=== PATIENT | female | born 1950 | race African-American/Black ===

== ENCOUNTER 2018-11-15 02:35 | Inpatient (IN) | payer MEDICARE, OTHER ==
[~2018-11-15] VITALS: Ht 167.6 cm; Wt 90.7 kg
[~2018-11-15 02:35] MED LIST: ADVAIR 500-501 EACH INH; ALBUTEROL2.5 MG/3 M INH; AMLODIPINE BES2.5 MG ORAL; ASPIRIN81 MG ORAL; AVAPRO300 MG ORAL; CENTRUM SILVER1 EAC6 PO; DULERA 100 MCG/13 GM INH; EFFEXOR XR75 MG ORAL; FISH OIL 1,0001 EAC1 ORAL; LEVOTHYROXINE100 MCG ORAL; LOSARTAN POTASS50 MG ORAL; MUCINEX600 MG PO; PREDNISONE10 MG ORAL; PREDNISONE2.5 MG ORAL; PREDNISONE5 M3 PO; PROBIOTIC1 EAC2 PO; SSS TONIC PO; VENTOLIN HFA18 GM INH; XOPENEX0.63 MG/3 HHN
[2018-11-15] MEDS ORDERED: ATROVENT HFA12.9 GM IH (05:03)
[2018-11-15] MEDS ORDERED: HYDROcodone/Acetamin 5/325 tab ORAL PRN ×2 (07:45→10:45)
[2018-11-15 08:00] VITALS: BP 151/81
[2018-11-15 08:53] LABS: EOSINOPHILS % (AUTO) 3.5 % (0.0-3.0); HEMATOCRIT 44.5 % (37.0-47.0); HEMOGLOBIN 14.7 G/DL (12.0-16.0); LYMPHOCYTES % (AUTO) 8.3 % (20.0-45.0); MEAN CORPUSCULAR VOLUME 95 FL (80-99); NEUTROPHILS % (AUTO) 79.3 % (45.0-75.0); PLATELET COUNT 335 K/UL (150-450); RED CELL DISTRIBUTION WIDTH 12.7 % (11.6-14.8); WHITE BLOOD COUNT 11.3 K/UL (4.8-10.8)
[2018-11-15 09:13] LABS: ALANINE AMINOTRANSFERASE 19 U/L (12-78); ALBUMIN 3.4 G/DL (3.4-5.0); ALBUMIN/GLOBULIN RATIO 0.9 (1.0-2.7); ALKALINE PHOSPHATASE 66 U/L (46-116); ANION GAP 7 mmol/L (5-15); ASPARTATE AMINO TRANSFERASE 10 U/L (15-37); BILIRUBIN,TOTAL 0.8 MG/DL (0.2-1.0); BLOOD UREA NITROGEN 20 mg/dL (7-18); CALCIUM 8.7 MG/DL (8.5-10.1); CARBON DIOXIDE 29 MMOL/L (21-32); CHLORIDE 102 MMOL/L (98-107); CREATININE 0.9 MG/DL (0.55-1.30); PHOSPHORUS 4.5 MG/DL (2.5-4.9); POTASSIUM 4.3 MMOL/L (3.5-5.1); SODIUM 138 MMOL/L (136-145)
[2018-11-15] MEDS: Irbesartan 150mg tablet ORAL SCH (09:40)
[2018-11-15] MEDS: Venlafaxine XR 75mg cap ORAL SCH (09:41)
[2018-11-15] MEDS: Acyclovir 1,000 MG in D5W 275 ML IV SCH ×2 (09:42→17:06)
[2018-11-15] MEDS: Aspirin Baby 81mg ORAL SCH (09:42)
[2018-11-15 10:24] VITALS: BP 151/81
[2018-11-15] MEDS: Morphine Sulfate 2mg/ml Inj(IV/IM USE ONLY) IVP PRN ×2 (10:43→17:06)
[2018-11-15] MEDS ORDERED: Morphine Sulfate 2mg/ml Inj(IV/IM USE ONLY) IVP PRN (10:45)
--- NOTE | 2018-11-15 11:28 | Consultation ---
History of Present Illness General Date patient seen: Nov 15, 2018 Present Illness HPI 68 year old female with hx of HTN, asthma, hypothyroid [place] [facility] [place] and swelling of R eye. Pt was diagnosed to have ophthalmic zoster and transferred [place] [facility] [place]. Pt is currently c/o of severe right frontal headache. Allergies: Coded Allergies: FLUTICASONE FUROATE (Verified Allergy, Severe, Anaphylaxis, 11/11/18) VILANTEROL (Verified Allergy, Severe, Anaphylaxis, 11/11/18) [id number] REDUCTASE INHIBITOR (Verified Allergy, Mild, Shortness of Breath, 01/16/16) SULFA (SULFONAMIDE ANTIBIOTICS) (Verified Allergy, Mild, Shortness of Breath, 01/16/16) SULFAMETHOXAZOLE (Verified Allergy, Mild, Rash, 01/16/16) TRIMETHOPRIM (Verified Allergy, Mild, Rash, 01/16/16) Medication History Scheduled Amlodipine Besylate* (Amlodipine Besylate*), 5 MG ORAL DAILY, (Reported) Aspirin* (Aspirin*), 81 MG ORAL 2-3 TIMES PER WEEK, (Reported) Irbesartan* (Avapro*), 300 MG ORAL DAILY, (Reported) Levothyroxine Sodium* (Levothyroxine Sodium*), 100 MCG ORAL DAILY, (Reported) Venlafaxine Hcl* (Effexor Xr*), 75 MG ORAL DAILY, (Reported) [Sss Tonic], Unknown Dose PO DAILY, (Reported) Miscellaneous Medications Ipratropium [place] (Atrovent Hfa), 0 IH, (Reported) Discontinued Medications Albuterol Sulfate (Ventolin Hfa), 1 PUFF INH EVERY 6 HOURS PRN for Shortness of breath, (Reported) Discontinued Reason: MD discontinued med Albuterol Sulfate* (Albuterol Sulfate Hhn*), 3 ML INH Q6H PRN for Shortness of Breath, (Reported) Discontinued Reason: Pt stopped taking med Fluticasone/Salmeterol (Advair 500-50 Diskus), 1 PUFF INH EVERY 12 HOURS, ( Reported) Discontinued Reason: Pt stopped taking med Guaifenesin (Mucinex), 600 MG PO DAILY, (Reported) Discontinued Reason: MD discontinued med Lactobacillus Acidophilus (Probiotic), 1 EACH PO, (Reported) Discontinued Reason: MD discontinued med Levalbuterol Hcl (Xopenex*), 0.45 MG HHN prn, (Reported) Discontinued Reason: Pt stopped taking med Losartan Potassium* (Losartan Potassium*), 50 MG ORAL bid, (Reported) Discontinued Reason: MD discontinued med Multivits-Min/Iron/FA/Lutein (Centrum Silver Women Tablet), 1 EACH PO DAILY, ( Reported) Discontinued Reason: MD discontinued med [place]-3 Fatty Acids/Fish Oil* (Fish Oil 1,000 Mg Softgel*), 1 CAP ORAL DAILY, ( Reported) Discontinued Reason: MD discontinued med Prednisone (Prednisone), 25 MG PO DAILY, (Reported) Discontinued Reason: MD discontinued med Prednisone* (Prednisone*), 25 MG ORAL DAILY, (Reported) Discontinued Reason: Prescription changed Prednisone* (Prednisone*), 2.5 MG ORAL DAILY, (Reported) Discontinued Reason: MD discontinued med Patient History Healthcare decision maker Resuscitation status Full Code Advanced Directive on File Past Medical/Surgical History Past Medical/Surgical History: (1) History of asthma (2) Hypothyroidism (3) History of hypertension Review of Systems All Other Systems: negative except mentioned in HPI Physical Exam General Appearance: WD/WN Lines, tubes and drains: peripheral HEENT: normocephalic, other - swelling of right lids, leading to closure of the eye Neck: non-tender, normal alignment Respiratory/Chest: chest wall non-tender, lungs clear Last 24 Hour Vital Signs Date Time Temp Pulse Resp B/P (MAP) Pulse Ox O2 Delivery O2 Flow Rate FiO2 11/15/18 09:41 71 151/81 11/15/18 09:40 151/81 11/15/18 08:00 98.2 71 18 151/81 (104) 95 11/15/18 04:21 Room Air 11/15/18 04:00 62 Laboratory Tests Test 11/15/18 08:40 White Blood Count 11.3 K/UL (4.8-10.8) H Red Blood Count 4.70 M/UL (4.20-5.40) Hemoglobin 14.7 G/DL (12.0-16.0) Hematocrit 44.5 % (37.0-47.0) Mean Corpuscular Volume 95 FL (80-99) Mean Corpuscular Hemoglobin 31.3 PG (27.0-31.0) H Mean Corpuscular Hemoglobin Concent 33.0 G/DL (32.0-36.0) Red Cell Distribution Width 12.7 % (11.6-14.8) Platelet Count 335 K/UL (150-450) Mean Platelet Volume 5.3 FL (6.5-10.1) L Neutrophils (%) (Auto) 79.3 % (45.0-75.0) H Lymphocytes (%) (Auto) 8.3 % (20.0-45.0) L Monocytes (%) (Auto) 8.0 % (1.0-10.0) Eosinophils (%) (Auto) 3.5 % (0.0-3.0) H Basophils (%) (Auto) 1.0 % (0.0-2.0) Sodium Level 138 MMOL/L (136-145) Potassium Level 4.3 MMOL/L (3.5-5.1) Chloride Level 102 MMOL/L (98-107) Carbon Dioxide Level 29 MMOL/L (21-32) Anion Gap 7 mmol/L (5-15) Blood Urea Nitrogen 20 mg/dL (7-18) H Creatinine 0.9 MG/DL (0.55-1.30) Estimat Glomerular Filtration Rate > 60 mL/min (>60) Glucose Level 116 MG/DL (74-106) H Calcium Level 8.7 MG/DL (8.5-10.1) Phosphorus Level 4.5 MG/DL (2.5-4.9) Magnesium Level 2.3 MG/DL (1.8-2.4) Total Bilirubin 0.8 MG/DL (0.2-1.0) Aspartate Amino Transf (AST/SGOT) 10 U/L (15-37) L Alanine Aminotransferase (ALT/SGPT) 19 U/L (12-78) Alkaline Phosphatase 66 U/L (46-116) Total Protein 7.1 G/DL (6.4-8.2) Albumin 3.4 G/DL (3.4-5.0) Globulin 3.7 g/dL Albumin/Globulin Ratio 0.9 (1.0-2.7) L Height (Feet): 5 Height (Inches): 6.00 Weight (Pounds): 203 Medications Current Medications Medications (Trade) Dose Ordered Sig/Shayan Route PRN Reason Start Time Stop Time Status Last Admin Dose Admin Acetaminophen (Tylenol) 650 mg Q4H PRN ORAL Mild Pain/Temp > 100.5 11/15/18 07:45 12/15/18 07:44 Acetaminophen/ Hydrocodone Bitart ([place] 5/325) 1 tab Q6H PRN ORAL moderate pain 4-6 11/15/18 10:45 11/22/18 07:44 Acyclovir 1000 mg/ Dextrose 275 ml @ 275 mls/hr Q8HR@0100,0900,1700 IV 11/15/18 09:00 12/15/18 08:59 11/15/18 09:42 Amlodipine Besylate (Norvasc) 5 mg DAILY ORAL 11/15/18 09:00 12/15/18 08:59 11/15/18 09:41 Aspirin (ASA) 81 mg DAILY ORAL 11/15/18 09:00 12/15/18 08:59 11/15/18 09:42 Gabapentin (Neurontin) 100 mg THREE TIMES A DAY ORAL 11/15/18 09:00 12/15/18 08:59 11/15/18 09:41 Heparin Sodium (Porcine) (Heparin 5000 units/ml) 5,000 units EVERY 8 HOURS SUBQ 11/15/18 14:00 12/15/18 13:59 Irbesartan (Avapro) 300 mg DAILY ORAL 11/15/18 09:00 12/15/18 08:59 11/15/18 09:40 Levothyroxine Sodium (Synthroid) 100 mcg DAILY@0630 ORAL 11/16/18 06:30 12/16/18 06:29 Morphine Sulfate (Morphine Sulfate) 2 mg Q4H PRN IVP severe pain 7-10 11/15/18 10:45 11/22/18 10:44 11/15/18 10:43 Ondansetron HCl (Zofran) 4 mg Q4H PRN IVP Nausea & Vomiting 11/15/18 07:45 12/15/18 07:44 Venlafaxine HCl (Effexor-XR) 75 mg DAILY ORAL 11/15/18 09:00 12/15/18 08:59 11/15/18 09:41 Assessment/Plan Problem List: (1) Shingles ICD Codes: B02.9 - Zoster without complications SNOMED: 9737826 (2) History of hypertension ICD Codes: Z86.79 - Personal history of other diseases of the circulatory system SNOMED: 211897835 (3) History of asthma ICD Codes: Z87.09 - Personal history of other diseases of the respiratory system SNOMED: 873871916 (4) Hypothyroidism ICD Codes: E03.9 - Hypothyroidism, unspecified SNOMED: 15687205 Assessment/Plan: Acyclovir IV IV morphine monitor BP symptomatic treatment ID consult dvt prophylaxis Patricia Willis MD Nov 15, 2018 11:28
[2018-11-15 12:00] VITALS: BP 137/71
[2018-11-15] MEDS: Heparin 5000 units/ml inj SUBQ SCH ×2 (13:55→22:00)
--- NOTE | 2018-11-15 15:57 | Consultation ---
Consult Note Consult Note ID Cons. [id number] August Hamlin MD Nov 15, 2018 15:57
[2018-11-15 16:00] VITALS: BP 127/75
[2018-11-15] MEDS: Erythromycin Opth Ointment 3.5gm RIGHT EYE SCH (17:54)
--- NOTE | 2018-11-15 18:45 | History & Physical ---
History and Physical History & Physicial Dictated for Int Med-Dr Burger no. [id number]. Moshe Marcano MD Nov 15, 2018 18:45
[2018-11-15 20:00] VITALS: BP 129/90
[2018-11-15] MEDS ORDERED: Morphine Sulfate 4mg/ml Inj (IV USE ONLY) IVP PRN (21:00)
--- NOTE | 2018-11-15 23:45 | History and Physical Report ---
DATE OF ADMISSION: 11/15/2018 CHIEF COMPLAINT: The patient is a 68-year-old female, who presents with a chief complaint of rash on the right side of her face. HISTORY OF PRESENT ILLNESS: Began on 11/10/2018. The patient noticed redness on the right side of her face. The patient then began to experience swelling on 11/05/2018. The right eye became very painful. The eye became so painful on 11/06/2018. The patient called EMS. The patient was transported initially to [facility] emergency room. The patient is transferred to [facility] for insurance purposes. The patient is admitted with a vesicular rash over the right forehead and right eye consistent with Herpes zoster. REVIEW OF SYSTEMS: CONSTITUTIONAL: The patient denies weight loss or weight gain. The patient denies fevers or chills. HEENT: The patient denies ear or throat pain. The patient denies headache. CARDIOVASCULAR: The patient denies palpitations or chest pain. CHEST: The patient denies wheeze or shortness of breath. ABDOMINAL: The patient denies nausea, vomiting, diarrhea, or constipation. GENITOURINARY: The patient denies dysuria or increased frequency of urination. NEUROMUSCULAR: The patient denies seizures or generalized weakness. INTEGUMENT: The patient complains of vesicular crusty rash over the right forehead and right eye. PAST MEDICAL HISTORY: Significant for, 1. Hypothyroidism. 2. Hypertension. 3. Asthma. 4. Chronic obstructive pulmonary disease. 5. Depression. 6. Hypercholesterolemia. PAST SURGICAL HISTORY: Significant for total abdominal hysterectomy secondary to uterine fibroids. CURRENT MEDICATIONS: 1. Levoxyl 0.1 mg p.o. daily. 2. Albuterol metered-dose inhaler two puffs p.o. q.i.d. p.r.n. 3. Atrovent metered-dose inhaler two puffs p.o. q.i.d. 4. Prednisone 20 mg p.o. daily. 5. Advair 500/50 one puff p.o. twice daily. 6. Losartan 50 mg p.o. daily. 7. Amlodipine 5 mg p.o. daily. 8. Fish oil 1000 mg 2 tablets p.o. twice daily. 9. Venlafaxine 75 mg p.o. daily. ALLERGIES: 1. Statin. 2. Sulfa drugs. SOCIAL HISTORY: The patient is single and is disabled. The patient denies tobacco use having quit approximately 15 years ago. The patient denies alcohol use. PHYSICAL EXAMINATION: VITAL SIGNS: Temperature 98.2, respirations 18, pulse 71, and blood pressure 161/81. GENERAL: This patient is a well-developed and well-nourished female, in no apparent distress. HEENT: Eyes, pupils are equal and responsive to light and accommodation. Extraocular movements are intact. NECK: Supple without lymphadenopathy. CHEST: Lungs are clear to auscultation bilaterally without wheezes or rales. CARDIOVASCULAR: Regular rhythm and rate. S1 and S2 are normal without murmurs, rubs, or gallops. ABDOMEN: Soft, nontender, and nondistended. Positive bowel sounds. No evidence of hepatosplenomegaly. Currently, no rebound or guarding noted. EXTREMITIES: Negative for clubbing, cyanosis, or edema. RECTAL/GENITAL: Refused. NEUROLOGIC: Cranial nerves II through XII are grossly intact without focal deficits. Motor strength is 5/5 bilaterally. Deep tendon reflexes are 2+ plantar. INTEGUMENT: There is a vesicular rash over the entire right forehead including the nose and right eye. LABORATORY STUDIES: WBC 12.1, hemoglobin 15.1, hematocrit 45.0, and platelets 343,000. Sodium 135, potassium 3.8, chloride 101, CO2 25, BUN 17, creatinine 0.87, and glucose 126. ASSESSMENT: This is a 68-year-old female. 1. Ophthalmic Herpes zoster of the right eye. 2. Herpes zoster of the face. 3. Hypothyroidism. 4. Asthma. 5. Hypertension. 6. Chronic obstructive pulmonary disease. 7. Depression. 8. Hypercholesterolemia. TREATMENT: 1. Herpes zoster ophthalmicus of the right eye/herpes zoster of the face. An Infectious Disease consultation has been obtained with Dr. Hamlin. The patient has been started empirically on intravenous acyclovir. We will follow recommendations of Infectious Disease. An Ophthalmology consultation has been obtained. 2. Hypothyroidism. Continue Synthroid as above. 3. Hypertension. Continue amlodipine and losartan as above. 4. Asthma. Continue Advair as above. Continue albuterol metered-dose inhaler two puffs p.o. q.i.d. p.r.n. 5. Depression. Continue venlafaxine as above. 6. Hypercholesteremia. Continue fish oil as above. Moshe Marcano M.D. DR: TRACEE JOB#: [id number] CC:
[2018-11-16] VITALS: BP 141/67
--- NOTE | 2018-11-16 00:45 | Consultation ---
DATE OF CONSULTATION: 11/15/2018 INFECTIOUS DISEASE CONSULTATION CONSULTING PHYSICIAN: August Hamlin M.D. REFERRING PHYSICIANS: 1. Patricia Willis M.D. 2. Lev Burger M.D. REASON FOR CONSULTATION: Evaluation of the patient for shingles and antibiotic management. HISTORY OF PRESENT ILLNESS: The patient is a 68-year-old female with multiple medical problems, who was admitted to this medical center due to right facial pain and rash. The patient initially was admitted to another facility, was diagnosed with shingles and then was transferred here for further care. Infectious Disease consultation has been requested for further evaluation of the patient and antibiotic management. PAST MEDICAL HISTORY: 1. Hypertension. 2. Asthma. 3. Hypothyroidism. MEDICATIONS: IV acyclovir. ALLERGIES: Sulfa and fluticasone. FAMILY HISTORY: Not contributing. REVIEW OF SYSTEMS: A 10-point review of systems was done and except what was mentioned above has been negative. SOCIAL HISTORY: Negative for alcohol or drug abuse. PHYSICAL EXAMINATION: VITAL SIGNS: Temperature 98 degrees, blood pressure 137/74, pulse 86, and respiratory rate 18. HEENT: No pale conjunctivae. No icterus. Face, there is a rash over the right frontal, periorbital, and tip of the nose. The patient has edema of the right eyelid. The patient expressed that there is no change of vision compared to prior due to cataract. NECK: No lymphadenopathy. CHEST: Bilateral air entry. No crackles. No wheezes. HEART: S1 and S2. ABDOMEN: Soft and nontender. EXTREMITIES: No cyanosis. NEUROLOGIC: Awake. LABORATORY AND DIAGNOSTIC DATA: White blood cells 11, hemoglobin 14, and platelets 335,000. BUN 20 and creatinine 0.9. ALT, AST, and alkaline phosphatase unremarkable. ASSESSMENT: The patient is a 68-year-old female with, 1. Right facial Herpes zoster ophthalmicus (based on the patient's history, no history of visual changes). 2. Afebrile. 3. Mild leukocytosis. PLAN: 1. Continue the patient on intravenous acyclovir. 2. Continue the patient on topical antibiotic treatment to prevent bacterial conjunctivitis. 3. Recommend Ophthalmologic consultation. 4. Monitor CBC. 5. Monitor BMP. 6. Monitor laboratories. 7. Contact isolation (no need for as the patient is not immunocompromised and does not have definitive Zoster). Thank you for this consultation. I will follow the patient with you during this hospitalization. August Hamlin M.D. DR: DIANELYS JOB#: [id number] CC:
[2018-11-16] MEDS: Acyclovir 1,000 MG in D5W 275 ML IV SCH ×3 (01:18→17:27)
[2018-11-16 04:00] VITALS: BP 127/65
[2018-11-16] MEDS: Heparin 5000 units/ml inj SUBQ SCH ×3 (06:23→22:06)
[2018-11-16 07:16] LABS: EOSINOPHILS % (AUTO) 1.4 % (0.0-3.0); HEMATOCRIT 42.4 % (37.0-47.0); HEMOGLOBIN 14.3 G/DL (12.0-16.0); LYMPHOCYTES % (AUTO) 10.5 % (20.0-45.0); MEAN CORPUSCULAR VOLUME 95 FL (80-99); MONOCYTES % (AUTO) 8.1 % (1.0-10.0); PLATELET COUNT 331 K/UL (150-450); RED BLOOD COUNT 4.47 M/UL (4.20-5.40); RED CELL DISTRIBUTION WIDTH 12.5 % (11.6-14.8); WHITE BLOOD COUNT 9.9 K/UL (4.8-10.8)
[2018-11-16 07:21] LABS: ANION GAP 9 mmol/L (5-15); BLOOD UREA NITROGEN 14 mg/dL (7-18); CALCIUM 8.6 MG/DL (8.5-10.1); CARBON DIOXIDE 27 MMOL/L (21-32); CHLORIDE 99 MMOL/L (98-107); CREATININE 0.7 MG/DL (0.55-1.30); POTASSIUM 3.8 MMOL/L (3.5-5.1); SODIUM 135 MMOL/L (136-145)
[2018-11-16 08:00] VITALS: BP 133/69
[2018-11-16] MEDS: Aspirin Baby 81mg ORAL SCH (09:10)
[2018-11-16] MEDS: Venlafaxine XR 75mg cap ORAL SCH (09:10)
[2018-11-16] MEDS: Irbesartan 150mg tablet ORAL SCH (09:11)
[2018-11-16] MEDS: Erythromycin Opth Ointment 3.5gm RIGHT EYE SCH ×2 (09:11→17:26)
--- NOTE | 2018-11-16 09:59 | Pulmonology Progress Note ---
Assessment/Plan Problems: (1) Shingles (2) History of hypertension (3) History of asthma (4) Hypothyroidism Assessment/Plan on IV acyclovir monitor BP respiratory treatment check electrolytes Subjective ROS Limited/Unobtainable: No Interval Events: not better, scared Allergies: Coded Allergies: FLUTICASONE FUROATE (Verified Allergy, Severe, Anaphylaxis, 11/11/18) VILANTEROL (Verified Allergy, Severe, Anaphylaxis, 11/11/18) [id number] REDUCTASE INHIBITOR (Verified Allergy, Mild, Shortness of Breath, 01/16/16) SULFA (SULFONAMIDE ANTIBIOTICS) (Verified Allergy, Mild, Shortness of Breath, 01/16/16) SULFAMETHOXAZOLE (Verified Allergy, Mild, Rash, 01/16/16) TRIMETHOPRIM (Verified Allergy, Mild, Rash, 01/16/16) Objective Last 24 Hour Vital Signs Date Time Temp Pulse Resp B/P (MAP) Pulse Ox O2 Delivery O2 Flow Rate FiO2 11/16/18 09:11 133/69 11/16/18 09:10 59 133/69 11/16/18 08:00 59 11/16/18 08:00 98.1 61 20 133/69 (90) 91 11/16/18 04:00 98.2 63 20 127/65 (85) 91 11/16/18 04:00 63 11/16/18 00:00 70 11/16/18 00:00 98.2 70 20 141/67 (91) 98 11/15/18 21:00 Room Air 11/15/18 20:00 98.2 77 18 129/90 (103) 98 11/15/18 20:00 77 11/15/18 16:00 84 11/15/18 16:00 97.7 95 18 127/75 (92) 92 11/15/18 12:00 98.2 71 18 137/71 (93) 94 11/15/18 12:00 81 Intake and Output 11/15/18 11/16/18 18:59 06:59 Intake Total 720 ml 400 ml Balance 720 ml 400 ml Intake Oral 720 ml Other 400 ml # Voids 3 3 General Appearance: WD/WN HEENT: normocephalic, atraumatic, other - the right eye still not open Respiratory/Chest: chest wall non-tender, lungs clear Breasts: no masses Cardiovascular: normal peripheral pulses Abdomen: normal bowel sounds, soft, non tender Extremities: no cyanosis, no clubbing Neurologic/Psychiatric: case management social worker II-XII grossly normal Lymphatic: no neck adenopathy Laboratory Tests 11/16/18 06:35: White Blood Count 9.9, Red Blood Count 4.47, Hemoglobin 14.3, Hematocrit 42.4, Mean Corpuscular Volume 95, Mean Corpuscular Hemoglobin 31.9H, Mean Corpuscular Hemoglobin Concent 33.6, Red Cell Distribution Width 12.5, Platelet Count 331, Mean Platelet Volume 5.4L, Neutrophils (%) (Auto) 79.0H, Lymphocytes (%) (Auto) 10.5L, Monocytes (%) (Auto) 8.1, Eosinophils (%) (Auto) 1.4, Basophils (%) (Auto ) 1.0, Sodium Level 135L, Potassium Level 3.8, Chloride Level 99, Carbon Dioxide Level 27, Anion Gap 9, Blood Urea Nitrogen 14, Creatinine 0.7, Estimat Glomerular Filtration Rate > 60, Glucose Level 113H, Calcium Level 8.6 Current Medications Medications (Trade) Dose Ordered Sig/Shayan Route PRN Reason Start Time Stop Time Status Last Admin Dose Admin Acetaminophen (Tylenol) 650 mg Q4H PRN ORAL Mild Pain/Temp > 100.5 11/15/18 07:45 12/15/18 07:44 Acetaminophen/ Hydrocodone Bitart ([place] 5/325) 1 tab Q6H PRN ORAL moderate pain 4-11/15/18 10:45 11/22/18 07:44 11/16/18 01:17 Acyclovir 1000 mg/ Dextrose 275 ml @ 275 mls/hr Q8HR@0100,0900,1700 IV 11/15/18 09:00 12/15/18 08:59 11/16/18 09:12 Amlodipine Besylate (Norvasc) 5 mg DAILY ORAL 11/15/18 09:00 12/15/18 08:59 11/16/18 09:10 Aspirin (ASA) 81 mg DAILY ORAL 11/15/18 09:00 12/15/18 08:59 11/16/18 09:10 Erythromycin (Ilotycin) 1 applic BID RIGHT EYE 11/15/18 18:00 11/22/18 17:59 11/16/18 09:11 Gabapentin (Neurontin) 100 mg THREE TIMES A DAY ORAL 11/15/18 09:00 12/15/18 08:59 11/16/18 09:10 Heparin Sodium (Porcine) (Heparin 5000 units/ml) 5,000 units EVERY 8 HOURS SUBQ 11/15/18 14:00 12/15/18 13:59 11/16/18 06:23 Irbesartan (Avapro) 300 mg DAILY ORAL 11/15/18 09:00 12/15/18 08:59 11/16/18 09:11 Levothyroxine Sodium (Synthroid) 100 mcg DAILY@0630 ORAL 11/16/18 06:30 12/16/18 06:29 11/16/18 06:18 Morphine Sulfate (Morphine Sulfate) 2 mg Q4H PRN IVP severe pain 7-10 11/15/18 21:00 11/22/18 10:44 Ondansetron HCl (Zofran) 4 mg Q4H PRN IVP Nausea & Vomiting 11/15/18 07:45 12/15/18 07:44 Prednisone (predniSONE) 15 mg DAILY ORAL 11/15/18 18:00 12/15/18 17:59 11/16/18 09:10 Venlafaxine HCl (Effexor-XR) 75 mg DAILY ORAL 11/15/18 09:00 12/15/18 08:59 11/16/18 09:10 Patricia Willis MD Nov 16, 2018 09:59
[2018-11-16] MEDS ORDERED: Albuterol/Ipratropium 3ml neb HHN PRN (10:00)
[2018-11-16] MEDS ORDERED: Ipratropium 0.02% Inh Soln 2.5ml UD HHN PRN (10:45)
[2018-11-16 12:00] VITALS: BP 136/73
[2018-11-16 16:00] VITALS: BP 139/67
--- NOTE | 2018-11-16 17:32 | Infectious Diseases Prog Note ---
Assessment/Plan Assessment/Plan ASSESSMENT: The patient is a 68-year-old female with, Right facial Herpes zoster ophthalmicus (no history of visual changes). Afebrile. Mild leukocytosis Hypertension. Asthma. Hypothyroidism. PLAN: Continue the patient on intravenous acyclovir d# 2. Continue the patient on topical Erythromycin Recommend Ophthalmologic consultation. Monitor CBC. Monitor BMP. Contact isolation Subjective Allergies: Coded Allergies: FLUTICASONE FUROATE (Verified Allergy, Severe, Anaphylaxis, 11/11/18) VILANTEROL (Verified Allergy, Severe, Anaphylaxis, 11/11/18) [id number] REDUCTASE INHIBITOR (Verified Allergy, Mild, Shortness of Breath, 01/16/16) SULFA (SULFONAMIDE ANTIBIOTICS) (Verified Allergy, Mild, Shortness of Breath, 01/16/16) SULFAMETHOXAZOLE (Verified Allergy, Mild, Rash, 01/16/16) TRIMETHOPRIM (Verified Allergy, Mild, Rash, 01/16/16) Subjective comfortable Objective Vital Signs Last 24 Hour Vital Signs Date Time Temp Pulse Resp B/P (MAP) Pulse Ox O2 Delivery O2 Flow Rate FiO2 11/16/18 16:00 98.2 75 20 139/67 (91) 95 11/16/18 12:00 98.4 68 20 136/73 (94) 93 11/16/18 12:00 72 11/16/18 09:11 133/69 11/16/18 09:10 59 133/69 11/16/18 09:00 Room Air 11/16/18 08:00 59 11/16/18 08:00 98.1 61 20 133/69 (90) 91 11/16/18 04:00 98.2 63 20 127/65 (85) 91 11/16/18 04:00 63 11/16/18 00:00 70 11/16/18 00:00 98.2 70 20 141/67 (91) 98 11/15/18 21:00 Room Air 11/15/18 20:00 98.2 77 18 129/90 (103) 98 11/15/18 20:00 77 Height (Feet): 5 Height (Inches): 6.00 Weight (Pounds): 203 HEENT: mucous membranes moist Respiratory/Chest: normal breath sounds Cardiovascular: regular rhythm Abdomen: soft, non tender Laboratory Tests Test 11/16/18 06:35 White Blood Count 9.9 K/UL (4.8-10.8) Red Blood Count 4.47 M/UL (4.20-5.40) Hemoglobin 14.3 G/DL (12.0-16.0) Hematocrit 42.4 % (37.0-47.0) Mean Corpuscular Volume 95 FL (80-99) Mean Corpuscular Hemoglobin 31.9 PG (27.0-31.0) H Mean Corpuscular Hemoglobin Concent 33.6 G/DL (32.0-36.0) Red Cell Distribution Width 12.5 % (11.6-14.8) Platelet Count 331 K/UL (150-450) Mean Platelet Volume 5.4 FL (6.5-10.1) L Neutrophils (%) (Auto) 79.0 % (45.0-75.0) H Lymphocytes (%) (Auto) 10.5 % (20.0-45.0) L Monocytes (%) (Auto) 8.1 % (1.0-10.0) Eosinophils (%) (Auto) 1.4 % (0.0-3.0) Basophils (%) (Auto) 1.0 % (0.0-2.0) Sodium Level 135 MMOL/L (136-145) L Potassium Level 3.8 MMOL/L (3.5-5.1) Chloride Level 99 MMOL/L (98-107) Carbon Dioxide Level 27 MMOL/L (21-32) Anion Gap 9 mmol/L (5-15) Blood Urea Nitrogen 14 mg/dL (7-18) Creatinine 0.7 MG/DL (0.55-1.30) Estimat Glomerular Filtration Rate > 60 mL/min (>60) Glucose Level 113 MG/DL (74-106) H Calcium Level 8.6 MG/DL (8.5-10.1) Current Medications Medications (Trade) Dose Ordered Sig/Shayan Route PRN Reason Start Time Stop Time Status Last Admin Dose Admin Acetaminophen (Tylenol) 650 mg Q4H PRN ORAL Mild Pain/Temp > 100.5 11/15/18 07:45 12/15/18 07:44 Acetaminophen/ Hydrocodone Bitart ([place] 5/325) 1 tab Q6H PRN ORAL moderate pain 4-6 11/15/18 10:45 11/22/18 07:44 4/30/19 01:17 Acyclovir 1000 mg/ Dextrose 275 ml @ 275 mls/hr Q8HR@0100,0900,1700 IV 11/15/18 09:00 12/15/18 08:59 11/16/18 17:27 Amlodipine Besylate (Norvasc) 5 mg DAILY ORAL 11/15/18 09:00 12/15/18 08:59 11/16/18 09:10 Aspirin (ASA) 81 mg DAILY ORAL 11/15/18 09:00 12/15/18 08:59 11/16/18 09:10 Erythromycin (Ilotycin) 1 applic BID RIGHT EYE 11/15/18 18:00 11/22/18 17:59 11/16/18 17:26 Gabapentin (Neurontin) 100 mg THREE TIMES A DAY ORAL 11/15/18 09:00 12/15/18 08:59 11/16/18 17:26 Heparin Sodium (Porcine) (Heparin 5000 units/ml) 5,000 units EVERY 8 HOURS SUBQ 11/15/18 14:00 12/15/18 13:59 11/16/18 13:10 Ipratropium [place] (Atrovent) 500 mcg Q6H PRN HHN Shortness of Breath 11/16/18 10:45 11/21/18 10:44 Irbesartan (Avapro) 300 mg DAILY ORAL 11/15/18 09:00 12/15/18 08:59 11/16/18 09:11 Levothyroxine Sodium (Synthroid) 100 mcg DAILY@0630 ORAL 11/16/18 06:30 12/16/18 06:29 11/16/18 06:18 Morphine Sulfate (Morphine Sulfate) 2 mg Q4H PRN IVP severe pain 7-10 11/15/18 21:00 11/22/18 10:44 Ondansetron HCl (Zofran) 4 mg Q4H PRN IVP Nausea & Vomiting 11/15/18 07:45 12/15/18 07:44 Prednisone (predniSONE) 15 mg DAILY ORAL 11/15/18 18:00 12/15/18 17:59 11/16/18 09:10 Sodium Chloride 1,000 ml @ 75 mls/hr [id number] IV 11/16/18 11:00 12/16/18 10:59 11/16/18 13:05 Venlafaxine HCl (Effexor-XR) 75 mg DAILY ORAL 11/15/18 09:00 12/15/18 08:59 11/16/18 09:10 August Hamlin MD Nov 16, 2018 17:32
--- NOTE | 2018-11-16 19:21 | Internal Med Progress Note ---
Subjective Date of Service: Nov 16, 2018 Physician Name Moshe Marcano Attending Physician Lev Burger MD Current Medications Medications (Trade) Dose Ordered Sig/Shayan Route PRN Reason Start Time Stop Time Status Last Admin Dose Admin Acetaminophen (Tylenol) 650 mg Q4H PRN ORAL Mild Pain/Temp > 100.5 11/15/18 07:45 12/15/18 07:44 Acetaminophen/ Hydrocodone Bitart ([place] 5/325) 1 tab Q6H PRN ORAL moderate pain 4-6 11/15/18 10:45 11/22/18 07:44 11/16/18 01:17 Acyclovir 1000 mg/ Dextrose 275 ml @ 275 mls/hr Q8HR@0100,0900,1700 IV 11/15/18 09:00 12/15/18 08:59 11/16/18 17:27 Amlodipine Besylate (Norvasc) 5 mg DAILY ORAL 11/15/18 09:00 12/15/18 08:59 11/16/18 09:10 Aspirin (ASA) 81 mg DAILY ORAL 11/15/18 09:00 12/15/18 08:59 11/16/18 09:10 Erythromycin (Ilotycin) 1 applic BID RIGHT EYE 11/15/18 18:00 11/22/18 17:59 11/16/18 17:26 Gabapentin (Neurontin) 100 mg THREE TIMES A DAY ORAL 11/15/18 09:00 12/15/18 08:59 11/16/18 17:26 Heparin Sodium (Porcine) (Heparin 5000 units/ml) 5,000 units EVERY 8 HOURS SUBQ 11/15/18 14:00 12/15/18 13:59 11/16/18 13:10 Ipratropium [place] (Atrovent) 500 mcg Q6H PRN HHN Shortness of Breath 11/16/18 10:45 11/21/18 10:44 Irbesartan (Avapro) 300 mg DAILY ORAL 11/15/18 09:00 12/15/18 08:59 11/16/18 09:11 Levothyroxine Sodium (Synthroid) 100 mcg DAILY@0630 ORAL 11/16/18 06:30 12/16/18 06:29 11/16/18 06:18 Morphine Sulfate (Morphine Sulfate) 2 mg Q4H PRN IVP severe pain 7-10 11/15/18 21:00 11/22/18 10:44 Ondansetron HCl (Zofran) 4 mg Q4H PRN IVP Nausea & Vomiting 11/15/18 07:45 12/15/18 07:44 Prednisone (predniSONE) 15 mg DAILY ORAL 11/15/18 18:00 12/15/18 17:59 11/16/18 09:10 Sodium Chloride 1,000 ml @ 75 mls/hr [id number] IV 11/16/18 11:00 12/16/18 10:59 11/16/18 13:05 Venlafaxine HCl (Effexor-XR) 75 mg DAILY ORAL 11/15/18 09:00 12/15/18 08:59 11/16/18 09:10 Allergies: Coded Allergies: FLUTICASONE FUROATE (Verified Allergy, Severe, Anaphylaxis, 11/11/18) VILANTEROL (Verified Allergy, Severe, Anaphylaxis, 11/11/18) [id number] REDUCTASE INHIBITOR (Verified Allergy, Mild, Shortness of Breath, 01/16/16) SULFA (SULFONAMIDE ANTIBIOTICS) (Verified Allergy, Mild, Shortness of Breath, 01/16/16) SULFAMETHOXAZOLE (Verified Allergy, Mild, Rash, 01/16/16) TRIMETHOPRIM (Verified Allergy, Mild, Rash, 01/16/16) ROS Limited/Unobtainable: No Constitutional: Reports: no symptoms HEENT: Reports: no symptoms Cardiovascular: Reports: no symptoms Respiratory: Reports: no symptoms Gastrointestinal/Abdominal: Reports: no symptoms Genitourinary: Reports: no symptoms Neurologic/Psychiatric: Reports: no symptoms Subjective 68 YO F admitted with rash on right face. Now herpes zoster ophthalmicus and herpes zoster face. Cover for Int Joel-Dr Burger Objective Last Vital Signs Date Time Temp Pulse Resp B/P (MAP) Pulse Ox O2 Delivery O2 Flow Rate FiO2 11/16/18 16:00 98.2 75 20 139/67 (91) 95 11/16/18 09:00 Room Air Laboratory Tests Test 11/16/18 06:35 White Blood Count 9.9 K/UL (4.8-10.8) Red Blood Count 4.47 M/UL (4.20-5.40) Hemoglobin 14.3 G/DL (12.0-16.0) Hematocrit 42.4 % (37.0-47.0) Mean Corpuscular Volume 95 FL (80-99) Mean Corpuscular Hemoglobin 31.9 PG (27.0-31.0) H Mean Corpuscular Hemoglobin Concent 33.6 G/DL (32.0-36.0) Red Cell Distribution Width 12.5 % (11.6-14.8) Platelet Count 331 K/UL (150-450) Mean Platelet Volume 5.4 FL (6.5-10.1) L Neutrophils (%) (Auto) 79.0 % (45.0-75.0) H Lymphocytes (%) (Auto) 10.5 % (20.0-45.0) L Monocytes (%) (Auto) 8.1 % (1.0-10.0) Eosinophils (%) (Auto) 1.4 % (0.0-3.0) Basophils (%) (Auto) 1.0 % (0.0-2.0) Sodium Level 135 MMOL/L (136-145) L Potassium Level 3.8 MMOL/L (3.5-5.1) Chloride Level 99 MMOL/L (98-107) Carbon Dioxide Level 27 MMOL/L (21-32) Anion Gap 9 mmol/L (5-15) Blood Urea Nitrogen 14 mg/dL (7-18) Creatinine 0.7 MG/DL (0.55-1.30) Estimat Glomerular Filtration Rate > 60 mL/min (>60) Glucose Level 113 MG/DL (74-106) H Calcium Level 8.6 MG/DL (8.5-10.1) Intake and Output 11/15/18 11/16/18 19:00 07:00 Intake Total 720 ml 400 ml Balance 720 ml 400 ml Intake Oral 720 ml Other 400 ml # Voids 3 3 Objective PHYSICAL EXAMINATION: GENERAL: This patient is a well-developed and well-nourished female, in no apparent distress. HEENT: Eyes, pupils are equal and responsive to light and accommodation. Extraocular movements are intact. NECK: Supple without lymphadenopathy. CHEST: Lungs are clear to auscultation bilaterally without wheezes or rales. CARDIOVASCULAR: Regular rhythm and rate. S1 and S2 are normal without murmurs, rubs, or gallops. ABDOMEN: Soft, nontender, and nondistended. Positive bowel sounds. No evidence of hepatosplenomegaly. Currently, no rebound or guarding noted. EXTREMITIES: Negative for clubbing, cyanosis, or edema. RECTAL/GENITAL: Refused. NEUROLOGIC: Cranial nerves II through XII are grossly intact without focal deficits. Motor strength is 5/5 bilaterally. Deep tendon reflexes are 2+ plantar. INTEGUMENT: There is a vesicular rash over the entire right forehead including the nose and right eye. Assessment/Plan Assessment/Plan ASSESSMENT: This is a 68-year-old female. 1. Ophthalmic Herpes zoster of the right eye. 2. Herpes zoster of the face. 3. Hypothyroidism. 4. Asthma. 5. Hypertension. 6. Chronic obstructive pulmonary disease. 7. Depression. 8. Hypercholesterolemia. TREATMENT: 1. Herpes zoster ophthalmicus of the right eye/herpes zoster of the face. An Infectious Disease consultation has been obtained with Dr. Hamlin. The patient has been started empirically on intravenous acyclovir. We will follow recommendations of Infectious Disease. An Ophthalmology consultation has been obtained. 2. Hypothyroidism. Continue Synthroid as above. 3. Hypertension. Continue amlodipine and losartan as above. 4. Asthma. Continue Advair as above. Continue albuterol metered-dose inhaler two puffs p.o. q.i.d. p.r.n. 5. Depression. Continue venlafaxine as above. 6. Hypercholesteremia. Continue fish oil as above. Moshe Marcano MD Nov 16, 2018 19:21
[2018-11-16 20:00] VITALS: BP 114/64
[2018-11-17] VITALS: BP 184/85
[2018-11-17] MEDS: Acyclovir 1,000 MG in D5W 275 ML IV SCH ×3 (01:15→18:09)
[2018-11-17 04:00] VITALS: BP 139/82
[2018-11-17] MEDS: Heparin 5000 units/ml inj SUBQ SCH ×3 (06:23→21:42)
[2018-11-17 08:00] VITALS: BP 125/84
[2018-11-17] MEDS: Erythromycin Opth Ointment 3.5gm RIGHT EYE SCH ×3 (09:00→18:09)
[2018-11-17] MEDS: Venlafaxine XR 75mg cap ORAL SCH (09:22)
[2018-11-17] MEDS: Irbesartan 150mg tablet ORAL SCH (09:23)
[2018-11-17] MEDS: Aspirin Baby 81mg ORAL SCH (09:23)
--- NOTE | 2018-11-17 11:34 | Pulmonology Progress Note ---
Assessment/Plan Problems: (1) Shingles (2) History of hypertension (3) History of asthma (4) Hypothyroidism Assessment/Plan getting better all reviewed on IV acyclovir monitor BP respiratory treatment check electrolytes dvt prophylaxis. Subjective ROS Limited/Unobtainable: No Interval Events: eye lid opening more Constitutional: Reports: no symptoms HEENT: Repors: no symptoms Allergies: Coded Allergies: FLUTICASONE FUROATE (Verified Allergy, Severe, Anaphylaxis, 11/11/18) VILANTEROL (Verified Allergy, Severe, Anaphylaxis, 11/11/18) [id number] REDUCTASE INHIBITOR (Verified Allergy, Mild, Shortness of Breath, 01/16/16) SULFA (SULFONAMIDE ANTIBIOTICS) (Verified Allergy, Mild, Shortness of Breath, 01/16/16) SULFAMETHOXAZOLE (Verified Allergy, Mild, Rash, 01/16/16) TRIMETHOPRIM (Verified Allergy, Mild, Rash, 01/16/16) Objective Last 24 Hour Vital Signs Date Time Temp Pulse Resp B/P (MAP) Pulse Ox O2 Delivery O2 Flow Rate FiO2 11/17/18 09:23 125/84 11/17/18 09:22 74 125/84 11/17/18 09:00 Room Air 11/17/18 08:23 74 20 Room Air 21 11/17/18 08:00 98.4 74 20 125/84 (98) 94 11/17/18 04:00 () 11/17/18 00:00 99.3 78 20 184/85 (118) 97 11/16/18 21:00 Room Air 11/16/18 20:00 69 11/16/18 20:00 99.0 78 18 114/64 (81) 95 11/16/18 16:00 98.2 75 20 139/67 (91) 95 11/16/18 16:00 65 11/16/18 12:00 98.4 68 20 136/73 (94) 93 11/16/18 12:00 72 Intake and Output 11/16/18 11/17/18 18:59 06:59 Intake Total 720 ml Balance 720 ml Intake Oral 720 ml # Voids 6 3 General Appearance: WD/WN HEENT: normocephalic, atraumatic Respiratory/Chest: chest wall non-tender, lungs clear Cardiovascular: normal peripheral pulses, regular rhythm Abdomen: normal bowel sounds, soft, non tender Genitourinary: normal external genitalia Extremities: no clubbing Current Medications Medications (Trade) Dose Ordered Sig/Shayan Route PRN Reason Start Time Stop Time Status Last Admin Dose Admin Acetaminophen (Tylenol) 650 mg Q4H PRN ORAL Mild Pain/Temp > 100.5 11/15/18 07:45 12/15/18 07:44 Acetaminophen/ Hydrocodone Bitart ([place] 5/325) 1 tab Q6H PRN ORAL moderate pain 4-6 11/15/18 10:45 11/22/18 07:44 11/16/18 01:17 Acyclovir 1000 mg/ Dextrose 275 ml @ 275 mls/hr Q8HR@0100,0900,1700 IV 11/15/18 09:00 12/15/18 08:59 11/17/18 10:01 Amlodipine Besylate (Norvasc) 5 mg DAILY ORAL 11/15/18 09:00 12/15/18 08:59 11/17/18 09:22 Aspirin (ASA) 81 mg DAILY ORAL 11/15/18 09:00 12/15/18 08:59 11/17/18 09:23 Erythromycin (Ilotycin) 1 applic BID RIGHT EYE 11/15/18 18:00 11/22/18 17:59 11/17/18 10:39 Gabapentin (Neurontin) 100 mg THREE TIMES A DAY ORAL 11/15/18 09:00 12/15/18 08:59 11/17/18 09:22 Heparin Sodium (Porcine) (Heparin 5000 units/ml) 5,000 units EVERY 8 HOURS SUBQ 11/15/18 14:00 12/15/18 13:59 11/17/18 06:23 Ipratropium [place] (Atrovent) 500 mcg Q6H PRN HHN Shortness of Breath 11/16/18 10:45 11/21/18 10:44 Irbesartan (Avapro) 300 mg DAILY ORAL 11/15/18 09:00 12/15/18 08:59 11/17/18 09:23 Levothyroxine Sodium (Synthroid) 100 mcg DAILY@0630 ORAL 11/16/18 06:30 12/16/18 06:29 11/17/18 06:20 Morphine Sulfate (Morphine Sulfate) 2 mg Q4H PRN IVP severe pain 7-10 11/15/18 21:00 11/22/18 10:44 Ondansetron HCl (Zofran) 4 mg Q4H PRN IVP Nausea & Vomiting 11/15/18 07:45 12/15/18 07:44 Prednisone (predniSONE) 15 mg DAILY ORAL 11/15/18 18:00 12/15/18 17:59 11/17/18 09:22 Sodium Chloride 1,000 ml @ 75 mls/hr [id number] IV 11/16/18 11:00 12/16/18 10:59 11/17/18 00:19 Venlafaxine HCl (Effexor-XR) 75 mg DAILY ORAL 11/15/18 09:00 12/15/18 08:59 11/17/18 09:22 Patricia Willis MD November 17, 2018 11:34
--- NOTE | 2018-11-17 11:54 | Internal Med Progress Note ---
Subjective Date of Service: November 17, 2018 Physician Name Moshe Marcano Attending Physician Lev Burger MD Current Medications Medications (Trade) Dose Ordered Sig/Shayan Route PRN Reason Start Time Stop Time Status Last Admin Dose Admin Acetaminophen (Tylenol) 650 mg Q4H PRN ORAL Mild Pain/Temp > 100.5 11/15/18 07:45 12/15/18 07:44 Acetaminophen/ Hydrocodone Bitart ([place] 5/325) 1 tab Q6H PRN ORAL moderate pain 4-6 11/15/18 10:45 11/22/18 07:44 11/16/18 01:17 Acyclovir 1000 mg/ Dextrose 275 ml @ 275 mls/hr Q8HR@0100,0900,1700 IV 11/15/18 09:00 12/15/18 08:59 11/17/18 10:01 Amlodipine Besylate (Norvasc) 5 mg DAILY ORAL 11/15/18 09:00 12/15/18 08:59 11/17/18 09:22 Aspirin (ASA) 81 mg DAILY ORAL 11/15/18 09:00 12/15/18 08:59 11/17/18 09:23 Erythromycin (Ilotycin) 1 applic BID RIGHT EYE 11/15/18 18:00 11/22/18 17:59 11/17/18 10:39 Gabapentin (Neurontin) 100 mg THREE TIMES A DAY ORAL 11/15/18 09:00 12/15/18 08:59 11/17/18 09:22 Heparin Sodium (Porcine) (Heparin 5000 units/ml) 5,000 units EVERY 8 HOURS SUBQ 11/15/18 14:00 12/15/18 13:59 11/17/18 06:23 Ipratropium [place] (Atrovent) 500 mcg Q6H PRN HHN Shortness of Breath 11/16/18 10:45 11/21/18 10:44 Irbesartan (Avapro) 300 mg DAILY ORAL 11/15/18 09:00 12/15/18 08:59 11/17/18 09:23 Levothyroxine Sodium (Synthroid) 100 mcg DAILY@0630 ORAL 11/16/18 06:30 12/16/18 06:29 11/17/18 06:20 Morphine Sulfate (Morphine Sulfate) 2 mg Q4H PRN IVP severe pain 7-10 11/15/18 21:00 11/22/18 10:44 Ondansetron HCl (Zofran) 4 mg Q4H PRN IVP Nausea & Vomiting 11/15/18 07:45 12/15/18 07:44 Prednisone (predniSONE) 15 mg DAILY ORAL 11/15/18 18:00 12/15/18 17:59 11/17/18 09:22 Sodium Chloride 1,000 ml @ 75 mls/hr [id number] IV 11/16/18 11:00 12/16/18 10:59 11/17/18 00:19 Venlafaxine HCl (Effexor-XR) 75 mg DAILY ORAL 11/15/18 09:00 12/15/18 08:59 11/17/18 09:22 Allergies: Coded Allergies: FLUTICASONE FUROATE (Verified Allergy, Severe, Anaphylaxis, 11/11/18) VILANTEROL (Verified Allergy, Severe, Anaphylaxis, 11/11/18) [id number] REDUCTASE INHIBITOR (Verified Allergy, Mild, Shortness of Breath, 01/16/16) SULFA (SULFONAMIDE ANTIBIOTICS) (Verified Allergy, Mild, Shortness of Breath, 01/16/16) SULFAMETHOXAZOLE (Verified Allergy, Mild, Rash, 01/16/16) TRIMETHOPRIM (Verified Allergy, Mild, Rash, 01/16/16) ROS Limited/Unobtainable: No Constitutional: Reports: no symptoms HEENT: Reports: no symptoms Cardiovascular: Reports: no symptoms Respiratory: Reports: no symptoms Gastrointestinal/Abdominal: Reports: no symptoms Genitourinary: Reports: no symptoms Neurologic/Psychiatric: Reports: no symptoms Subjective 68 YO F admitted with rash on right face. Now herpes zoster ophthalmicus and herpes zoster face. Cover for Int Joel-Dr Burger Objective Last Vital Signs Date Time Temp Pulse Resp B/P (MAP) Pulse Ox O2 Delivery O2 Flow Rate FiO2 11/17/18 09:23 125/84 11/17/18 09:22 74 11/17/18 09:00 Room Air 11/17/18 08:23 20 21 11/17/18 08:00 98.4 94 Intake and Output 11/16/18 11/17/18 18:59 06:59 Intake Total 720 ml Balance 720 ml Intake Oral 720 ml # Voids 6 3 Objective PHYSICAL EXAMINATION: GENERAL: This patient is a well-developed and well-nourished female, in no apparent distress. HEENT: Eyes, pupils are equal and responsive to light and accommodation. Extraocular movements are intact. NECK: Supple without lymphadenopathy. CHEST: Lungs are clear to auscultation bilaterally without wheezes or rales. CARDIOVASCULAR: Regular rhythm and rate. S1 and S2 are normal without murmurs, rubs, or gallops. ABDOMEN: Soft, nontender, and nondistended. Positive bowel sounds. No evidence of hepatosplenomegaly. Currently, no rebound or guarding noted. EXTREMITIES: Negative for clubbing, cyanosis, or edema. RECTAL/GENITAL: Refused. NEUROLOGIC: Cranial nerves II through XII are grossly intact without focal deficits. Motor strength is 5/5 bilaterally. Deep tendon reflexes are 2+ plantar. INTEGUMENT: There is a vesicular rash over the entire right forehead including the nose and right eye. Assessment/Plan Assessment/Plan ASSESSMENT: This is a 68-year-old female. 1. Ophthalmic Herpes zoster of the right eye. 2. Herpes zoster of the face. 3. Hypothyroidism. 4. Asthma. 5. Hypertension. 6. Chronic obstructive pulmonary disease. 7. Depression. 8. Hypercholesterolemia. TREATMENT: 1. Herpes zoster ophthalmicus of the right eye/herpes zoster of the face. An Infectious Disease consultation has been obtained with Dr. Hamlin. The patient has been started empirically on intravenous acyclovir. We will follow recommendations of Infectious Disease. An Ophthalmology consultation has been obtained. 2. Hypothyroidism. Continue Synthroid as above. 3. Hypertension. Continue amlodipine and losartan as above. 4. Asthma. Continue Advair as above. Continue albuterol metered-dose inhaler two puffs p.o. q.i.d. p.r.n. 5. Depression. Continue venlafaxine as above. 6. Hypercholesteremia. Continue fish oil as above. Moshe Marcano MD November 17, 2018 11:54
[2018-11-17 12:00] VITALS: BP 130/70
[2018-11-17 16:00] VITALS: BP 156/70
--- NOTE | 2018-11-17 19:00 | Infectious Diseases Prog Note ---
Assessment/Plan Assessment/Plan ASSESSMENT: The patient is a 68-year-old female with, Right facial Herpes zoster ophthalmicus (no history of visual changes). Afebrile. Mild leukocytosis Hypertension. Asthma. Hypothyroidism. PLAN: Continue the patient on intravenous acyclovir d# 3 / Continue the patient on topical Erythromycin Recommend Ophthalmologic consultation. Monitor CBC. Monitor BMP. Contact isolation Subjective Allergies: Coded Allergies: FLUTICASONE FUROATE (Verified Allergy, Severe, Anaphylaxis, 11/11/18) VILANTEROL (Verified Allergy, Severe, Anaphylaxis, 11/11/18) [id number] REDUCTASE INHIBITOR (Verified Allergy, Mild, Shortness of Breath, 01/16/16) SULFA (SULFONAMIDE ANTIBIOTICS) (Verified Allergy, Mild, Shortness of Breath, 01/16/16) SULFAMETHOXAZOLE (Verified Allergy, Mild, Rash, 01/16/16) TRIMETHOPRIM (Verified Allergy, Mild, Rash, 01/16/16) Subjective comfortable Objective Vital Signs Last 24 Hour Vital Signs Date Time Temp Pulse Resp B/P (MAP) Pulse Ox O2 Delivery O2 Flow Rate FiO2 11/17/18 16:00 97.5 79 20 156/70 (98) 95 11/17/18 12:00 97.2 97 20 130/70 (90) 97 11/17/18 09:23 125/84 11/17/18 09:22 74 125/84 11/17/18 09:00 Room Air 11/17/18 08:23 74 20 Room Air 21 11/17/18 08:00 98.4 74 20 125/84 (98) 94 11/17/18 04:00 () 11/17/18 00:00 99.3 78 20 184/85 (118) 97 11/16/18 21:00 Room Air 11/16/18 20:00 69 11/16/18 20:00 99.0 78 18 114/64 (81) 95 Height (Feet): 5 Height (Inches): 6.00 Weight (Pounds): 200 HEENT: atraumatic Respiratory/Chest: no respiratory distress Cardiovascular: regular rhythm Abdomen: soft, non tender Current Medications Medications (Trade) Dose Ordered Sig/Shayan Route PRN Reason Start Time Stop Time Status Last Admin Dose Admin Acetaminophen (Tylenol) 650 mg Q4H PRN ORAL Mild Pain/Temp > 100.5 11/15/18 07:45 12/15/18 07:44 Acetaminophen/ Hydrocodone Bitart ([place] 5/325) 1 tab Q6H PRN ORAL moderate pain 4-6 11/15/18 10:45 11/22/18 07:44 11/16/18 01:17 Acyclovir 1000 mg/ Dextrose 275 ml @ 275 mls/hr Q8HR@0100,0900,1700 IV 11/15/18 09:00 12/15/18 08:59 11/17/18 18:09 Amlodipine Besylate (Norvasc) 5 mg DAILY ORAL 11/15/18 09:00 12/15/18 08:59 11/17/18 09:22 Aspirin (ASA) 81 mg DAILY ORAL 11/15/18 09:00 12/15/18 08:59 11/17/18 09:23 Erythromycin (Ilotycin) 1 applic BID RIGHT EYE 11/15/18 18:00 11/22/18 17:59 11/17/18 18:09 Gabapentin (Neurontin) 100 mg THREE TIMES A DAY ORAL 11/15/18 09:00 12/15/18 08:59 11/17/18 18:09 Heparin Sodium (Porcine) (Heparin 5000 units/ml) 5,000 units EVERY 8 HOURS SUBQ 11/15/18 14:00 12/15/18 13:59 11/17/18 06:23 Ipratropium [place] (Atrovent) 500 mcg Q6H PRN HHN Shortness of Breath 11/16/18 10:45 11/21/18 10:44 Irbesartan (Avapro) 300 mg DAILY ORAL 11/15/18 09:00 12/15/18 08:59 11/17/18 09:23 Levothyroxine Sodium (Synthroid) 100 mcg DAILY@0630 ORAL 11/16/18 06:30 12/16/18 06:29 11/17/18 06:20 Morphine Sulfate (Morphine Sulfate) 2 mg Q4H PRN IVP severe pain 7-10 11/15/18 21:00 11/22/18 10:44 Ondansetron HCl (Zofran) 4 mg Q4H PRN IVP Nausea & Vomiting 11/15/18 07:45 12/15/18 07:44 Prednisone (predniSONE) 15 mg DAILY ORAL 11/15/18 18:00 12/15/18 17:59 11/17/18 09:22 Sodium Chloride 1,000 ml @ 75 mls/hr [id number] IV 11/16/18 11:00 12/16/18 10:59 11/17/18 00:19 Venlafaxine HCl (Effexor-XR) 75 mg DAILY ORAL 11/15/18 09:00 12/15/18 08:59 11/17/18 09:22 August Hamlin MD November 17, 2018 19:00
[2018-11-17 20:00] VITALS: BP 138/61
[2018-11-18] VITALS: BP 134/74
[2018-11-18] MEDS: Acyclovir 1,000 MG in D5W 275 ML IV SCH ×3 (00:03→17:14)
[2018-11-18 04:00] VITALS: BP 142/79
[2018-11-18] MEDS: Heparin 5000 units/ml inj SUBQ SCH ×3 (05:42→22:26)
[2018-11-18 07:03] LABS: BASOPHILS % (AUTO) 1.5 % (0.0-2.0); EOSINOPHILS % (AUTO) 5.1 % (0.0-3.0); HEMATOCRIT 40.5 % (37.0-47.0); HEMOGLOBIN 13.4 G/DL (12.0-16.0); LYMPHOCYTES % (AUTO) 22.4 % (20.0-45.0); MEAN CORPUSCULAR VOLUME 95 FL (80-99); MONOCYTES % (AUTO) 11.1 % (1.0-10.0); NEUTROPHILS % (AUTO) 59.9 % (45.0-75.0); PLATELET COUNT 304 K/UL (150-450); RED BLOOD COUNT 4.27 M/UL (4.20-5.40); RED CELL DISTRIBUTION WIDTH 12.4 % (11.6-14.8); WHITE BLOOD COUNT 8.4 K/UL (4.8-10.8)
[2018-11-18 08:00] VITALS: BP 126/66
[2018-11-18 08:30] LABS: ALANINE AMINOTRANSFERASE 23 U/L (12-78); ALBUMIN/GLOBULIN RATIO 0.8 (1.0-2.7); ALKALINE PHOSPHATASE 59 U/L (46-116); ANION GAP 11 mmol/L (5-15); ASPARTATE AMINO TRANSFERASE 18 U/L (15-37); BILIRUBIN,TOTAL 0.4 MG/DL (0.2-1.0); BLOOD UREA NITROGEN 13 mg/dL (7-18); CALCIUM 8.7 MG/DL (8.5-10.1); CARBON DIOXIDE 26 MMOL/L (21-32); CHLORIDE 102 MMOL/L (98-107); CREATININE 0.8 MG/DL (0.55-1.30); PHOSPHORUS 4.6 MG/DL (2.5-4.9); POTASSIUM 3.5 MMOL/L (3.5-5.1); SODIUM 139 MMOL/L (136-145)
[2018-11-18] MEDS: Irbesartan 150mg tablet ORAL SCH (09:00)
[2018-11-18] MEDS: Aspirin Baby 81mg ORAL SCH ×2 (09:00→09:03)
[2018-11-18] MEDS: Venlafaxine XR 75mg cap ORAL SCH (09:03)
[2018-11-18] MEDS: Erythromycin Opth Ointment 3.5gm RIGHT EYE SCH ×2 (09:04→17:53)
[2018-11-18] MEDS ORDERED: Ipratropium 0.02% Inh Soln 2.5ml UD HHN PRN (10:45)
[2018-11-18] MEDS ORDERED: HYDROcodone/Acetamin 5/325 tab ORAL PRN (10:45)
[2018-11-18] MEDS ORDERED: Morphine Sulfate 2mg/ml Inj(IV/IM USE ONLY) IVP PRN (11:00)
[2018-11-18 12:00] VITALS: BP 130/72
--- NOTE | 2018-11-18 12:52 | Pulmonology Progress Note ---
Assessment/Plan Problems: (1) Shingles (2) History of hypertension (3) History of asthma (4) Hypothyroidism Assessment/Plan all reviewed getting better all reviewed on IV acyclovir monitor BP respiratory treatment check electrolytes dvt prophylaxis. Subjective ROS Limited/Unobtainable: No Constitutional: Reports: no symptoms HEENT: Repors: no symptoms Respiratory: Reports: no symptoms Allergies: Coded Allergies: FLUTICASONE FUROATE (Verified Allergy, Severe, Anaphylaxis, 11/11/18) VILANTEROL (Verified Allergy, Severe, Anaphylaxis, 11/11/18) [id number] REDUCTASE INHIBITOR (Verified Allergy, Mild, Shortness of Breath, 01/16/16) SULFA (SULFONAMIDE ANTIBIOTICS) (Verified Allergy, Mild, Shortness of Breath, 01/16/16) SULFAMETHOXAZOLE (Verified Allergy, Mild, Rash, 01/16/16) TRIMETHOPRIM (Verified Allergy, Mild, Rash, 01/16/16) Objective Last 24 Hour Vital Signs Date Time Temp Pulse Resp B/P (MAP) Pulse Ox O2 Delivery O2 Flow Rate FiO2 11/18/18 09:03 89 126/66 11/18/18 09:00 126/66 11/18/18 09:00 Room Air 11/18/18 08:00 99.0 89 16 126/66 (86) 91 11/18/18 07:25 86 18 Room Air 21 11/18/18 04:00 98.1 75 18 142/79 (100) 96 11/18/18 00:00 98.4 82 18 134/74 (94) 94 11/17/18 21:00 Room Air 11/17/18 20:08 78 20 Room Air 21 11/17/18 20:00 98.2 80 18 138/61 (86) 95 11/17/18 16:00 97.5 79 20 156/70 (98) 95 Intake and Output 11/17/18 11/18/18 19:00 07:00 Intake Total 775 ml 2345 ml Output Total 1200 ml 700 ml Balance -425 ml 1645 ml Intake Oral 700 ml 700 ml IV Total 75 ml 1245 ml Other 400 ml Output Urine Total 1200 ml 700 ml # Voids 3 General Appearance: WD/WN HEENT: normocephalic, atraumatic Respiratory/Chest: chest wall non-tender, lungs clear Breasts: no masses Cardiovascular: normal peripheral pulses Abdomen: normal bowel sounds, soft, non tender Genitourinary: normal external genitalia Skin: no rash Laboratory Tests 11/18/18 06:20: White Blood Count 8.4, Red Blood Count 4.27, Hemoglobin 13.4, Hematocrit 40.5, Mean Corpuscular Volume 95, Mean Corpuscular Hemoglobin 31.4H, Mean Corpuscular Hemoglobin Concent 33.1, Red Cell Distribution Width 12.4, Platelet Count 304, Mean Platelet Volume 5.5L, Neutrophils (%) (Auto) 59.9, Lymphocytes (%) (Auto) 22.4, Monocytes (%) (Auto) 11.1H, Eosinophils (%) (Auto) 5.1H, Basophils (%) ( Auto) 1.5, Erythrocyte Sedimentation Rate 25, Sodium Level 139, Potassium Level 3.5, Chloride Level 102, Carbon Dioxide Level 26, Anion Gap 11, Blood Urea Nitrogen 13, Creatinine 0.8, Estimat Glomerular Filtration Rate > 60, Glucose Level 99, Calcium Level 8.7, Phosphorus Level 4.6, Magnesium Level 2.1, Total Bilirubin 0.4, Aspartate Amino Transf (AST/SGOT) 18, Alanine Aminotransferase ( ALT/SGPT) 23, Alkaline Phosphatase 59, C-Reactive Protein, Quantitative 1.9H, Total Protein 6.6, Albumin 3.0L, Globulin 3.6, Albumin/Globulin Ratio 0.8L Current Medications Medications (Trade) Dose Ordered Sig/Shayan Route PRN Reason Start Time Stop Time Status Last Admin Dose Admin Acetaminophen (Tylenol) 650 mg Q4H PRN ORAL Mild Pain/Temp > 100.5 11/18/18 11:00 12/15/18 10:59 Acetaminophen/ Hydrocodone Bitart ([place] 5/325) 1 tab Q6H PRN ORAL moderate pain 4-6 11/18/18 10:45 11/22/18 07:44 Acyclovir 1000 mg/ Dextrose 275 ml @ 275 mls/hr Q8HR@0100,0900,1700 IV 11/18/18 17:00 12/15/18 08:59 Amlodipine Besylate (Norvasc) 5 mg DAILY ORAL 11/19/18 09:00 12/15/18 08:59 Aspirin (ASA) 81 mg DAILY ORAL 11/19/18 09:00 12/15/18 08:59 Erythromycin (Ilotycin) 1 applic BID RIGHT EYE 11/18/18 18:00 11/22/18 17:59 Gabapentin (Neurontin) 100 mg THREE TIMES A DAY ORAL 11/18/18 13:00 12/15/18 08:59 Heparin Sodium (Porcine) (Heparin 5000 units/ml) 5,000 units EVERY 8 HOURS SUBQ 11/18/18 14:00 12/15/18 13:59 Ipratropium [place] (Atrovent) 500 mcg Q6H PRN HHN Shortness of Breath 11/18/18 10:45 11/21/18 10:44 Irbesartan (Avapro) 300 mg DAILY ORAL 11/19/18 09:00 12/15/18 08:59 Levothyroxine Sodium (Synthroid) 100 mcg DAILY@0630 ORAL 11/19/18 06:30 12/16/18 06:29 Morphine Sulfate (Morphine Sulfate) 2 mg Q4H PRN IVP severe pain 7-10 11/18/18 11:00 11/22/18 10:59 Ondansetron HCl (Zofran) 4 mg Q4H PRN IVP Nausea & Vomiting 11/18/18 11:00 12/15/18 10:59 Prednisone (predniSONE) 15 mg DAILY ORAL 11/19/18 09:00 12/15/18 17:59 Sodium Chloride 1,000 ml @ 75 mls/hr [id number] IV 11/18/18 10:15 12/16/18 10:59 Venlafaxine HCl (Effexor-XR) 75 mg DAILY ORAL 11/19/18 09:00 12/15/18 08:59 Patricia Willis MD November 18, 2018 12:52
--- NOTE | 2018-11-18 13:37 | Infectious Diseases Prog Note ---
Assessment/Plan Assessment/Plan ASSESSMENT: The patient is a 68-year-old female with, Right facial Herpes zoster ophthalmicus (no history of visual changes), crusting Afebrile. Mild leukocytosis, Sp Hypertension. Asthma. Hypothyroidism. PLAN: Continue the patient on intravenous acyclovir d# 4/, upon DC will change to Valtrex to complete the course Continue the patient on topical Erythromycin Recommend Ophthalmologic consultation. Monitor CBC. Monitor BMP. Contact isolation Subjective Allergies: Coded Allergies: FLUTICASONE FUROATE (Verified Allergy, Severe, Anaphylaxis, 11/11/18) VILANTEROL (Verified Allergy, Severe, Anaphylaxis, 11/11/18) [id number]-[id number]-ACY REDUCTASE INHIBITOR (Verified Allergy, Mild, Shortness of Breath, 01/16/16) SULFA (SULFONAMIDE ANTIBIOTICS) (Verified Allergy, Mild, Shortness of Breath, 01/16/16) SULFAMETHOXAZOLE (Verified Allergy, Mild, Rash, 01/16/16) TRIMETHOPRIM (Verified Allergy, Mild, Rash, 01/16/16) Subjective Afebrile Objective Vital Signs Last 24 Hour Vital Signs Date Time Temp Pulse Resp B/P (MAP) Pulse Ox O2 Delivery O2 Flow Rate FiO2 11/18/18 09:03 89 126/66 11/18/18 09:00 126/66 11/18/18 09:00 Room Air 11/18/18 08:00 99.0 89 16 126/66 (86) 91 11/18/18 07:25 86 18 Room Air 21 11/18/18 04:00 98.1 75 18 142/79 (100) 96 11/18/18 00:00 98.4 82 18 134/74 (94) 94 11/17/18 21:00 Room Air 11/17/18 20:08 78 20 Room Air 21 11/17/18 20:00 98.2 80 18 138/61 (86) 95 11/17/18 16:00 97.5 79 20 156/70 (98) 95 Height (Feet): 5 Height (Inches): 6.00 Weight (Pounds): 200 HEENT: anicteric Respiratory/Chest: normal breath sounds Cardiovascular: regularly irregular Abdomen: no organomegaly Laboratory Tests Test 11/18/18 06:20 White Blood Count 8.4 K/UL (4.8-10.8) Red Blood Count 4.27 M/UL (4.20-5.40) Hemoglobin 13.4 G/DL (12.0-16.0) Hematocrit 40.5 % (37.0-47.0) Mean Corpuscular Volume 95 FL (80-99) Mean Corpuscular Hemoglobin 31.4 PG (27.0-31.0) H Mean Corpuscular Hemoglobin Concent 33.1 G/DL (32.0-36.0) Red Cell Distribution Width 12.4 % (11.6-14.8) Platelet Count 304 K/UL (150-450) Mean Platelet Volume 5.5 FL (6.5-10.1) L Neutrophils (%) (Auto) 59.9 % (45.0-75.0) Lymphocytes (%) (Auto) 22.4 % (20.0-45.0) Monocytes (%) (Auto) 11.1 % (1.0-10.0) H Eosinophils (%) (Auto) 5.1 % (0.0-3.0) H Basophils (%) (Auto) 1.5 % (0.0-2.0) Erythrocyte Sedimentation Rate 25 MM/HR (0-30) Sodium Level 139 MMOL/L (136-145) Potassium Level 3.5 MMOL/L (3.5-5.1) Chloride Level 102 MMOL/L (98-107) Carbon Dioxide Level 26 MMOL/L (21-32) Anion Gap 11 mmol/L (5-15) Blood Urea Nitrogen 13 mg/dL (7-18) Creatinine 0.8 MG/DL (0.55-1.30) Estimat Glomerular Filtration Rate > 60 mL/min (>60) Glucose Level 99 MG/DL (74-106) Calcium Level 8.7 MG/DL (8.5-10.1) Phosphorus Level 4.6 MG/DL (2.5-4.9) Magnesium Level 2.1 MG/DL (1.8-2.4) Total Bilirubin 0.4 MG/DL (0.2-1.0) Aspartate Amino Transf (AST/SGOT) 18 U/L (15-37) Alanine Aminotransferase (ALT/SGPT) 23 U/L (12-78) Alkaline Phosphatase 59 U/L (46-116) C-Reactive Protein, Quantitative 1.9 mg/dL (0.00-0.90) H Total Protein 6.6 G/DL (6.4-8.2) Albumin 3.0 G/DL (3.4-5.0) L Globulin 3.6 g/dL Albumin/Globulin Ratio 0.8 (1.0-2.7) L Current Medications Medications (Trade) Dose Ordered Sig/Shayan Route PRN Reason Start Time Stop Time Status Last Admin Dose Admin Acetaminophen (Tylenol) 650 mg Q4H PRN ORAL Mild Pain/Temp > 100.5 11/18/18 11:00 12/15/18 10:59 Acetaminophen/ Hydrocodone Bitart ([place] 5/325) 1 tab Q6H PRN ORAL moderate pain 4-6 11/18/18 10:45 11/22/18 07:44 Acyclovir 1000 mg/ Dextrose 275 ml @ 275 mls/hr Q8HR@0100,0900,1700 IV 11/18/18 17:00 12/15/18 08:59 Amlodipine Besylate (Norvasc) 5 mg DAILY ORAL 11/19/18 09:00 12/15/18 08:59 Aspirin (ASA) 81 mg DAILY ORAL 11/19/18 09:00 12/15/18 08:59 Erythromycin (Ilotycin) 1 applic BID RIGHT EYE 11/18/18 18:00 11/22/18 17:59 Gabapentin (Neurontin) 100 mg THREE TIMES A DAY ORAL 11/18/18 13:00 12/15/18 08:59 11/18/18 13:24 Heparin Sodium (Porcine) (Heparin 5000 units/ml) 5,000 units EVERY 8 HOURS SUBQ 11/18/18 14:00 12/15/18 13:59 11/18/18 13:29 Ipratropium [place] (Atrovent) 500 mcg Q6H PRN HHN Shortness of Breath 11/18/18 10:45 11/21/18 10:44 Irbesartan (Avapro) 300 mg DAILY ORAL 11/19/18 09:00 12/15/18 08:59 Levothyroxine Sodium (Synthroid) 100 mcg DAILY@0630 ORAL 11/19/18 06:30 12/16/18 06:29 Morphine Sulfate (Morphine Sulfate) 2 mg Q4H PRN IVP severe pain 7-10 11/18/18 11:00 11/22/18 10:59 Ondansetron HCl (Zofran) 4 mg Q4H PRN IVP Nausea & Vomiting 11/18/18 11:00 12/15/18 10:59 Prednisone (predniSONE) 15 mg DAILY ORAL 11/19/18 09:00 12/15/18 17:59 Sodium Chloride 1,000 ml @ 75 mls/hr [id number] IV 11/18/18 10:15 12/16/18 10:59 Venlafaxine HCl (Effexor-XR) 75 mg DAILY ORAL 11/19/18 09:00 12/15/18 08:59 August Hamlin MD November 18, 2018 13:37
[2018-11-18 16:00] VITALS: BP 144/72
--- NOTE | 2018-11-18 18:08 | Internal Med Progress Note ---
Subjective Date of Service: November 18, 2018 Physician Name Moshe Marcano Attending Physician Lev Burger MD Current Medications Medications (Trade) Dose Ordered Sig/Shayan Route PRN Reason Start Time Stop Time Status Last Admin Dose Admin Acetaminophen (Tylenol) 650 mg Q4H PRN ORAL Mild Pain/Temp > 100.5 11/18/18 11:00 12/15/18 10:59 Acetaminophen/ Hydrocodone Bitart ([place] 5/325) 1 tab Q6H PRN ORAL moderate pain 4-6 11/18/18 10:45 11/22/18 07:44 Acyclovir 1000 mg/ Dextrose 275 ml @ 275 mls/hr Q8HR@0100,0900,1700 IV 11/18/18 17:00 12/15/18 08:59 11/18/18 17:14 Amlodipine Besylate (Norvasc) 5 mg DAILY ORAL 11/19/18 09:00 12/15/18 08:59 Aspirin (ASA) 81 mg DAILY ORAL 11/19/18 09:00 12/15/18 08:59 Erythromycin (Ilotycin) 1 applic BID RIGHT EYE 11/18/18 18:00 11/22/18 17:59 11/18/18 17:53 Gabapentin (Neurontin) 100 mg THREE TIMES A DAY ORAL 11/18/18 13:00 12/15/18 08:59 11/18/18 17:14 Heparin Sodium (Porcine) (Heparin 5000 units/ml) 5,000 units EVERY 8 HOURS SUBQ 11/18/18 14:00 12/15/18 13:59 11/18/18 13:29 Ipratropium [place] (Atrovent) 500 mcg Q6H PRN HHN Shortness of Breath 11/18/18 10:45 11/21/18 10:44 Irbesartan (Avapro) 300 mg DAILY ORAL 11/19/18 09:00 12/15/18 08:59 Levothyroxine Sodium (Synthroid) 100 mcg DAILY@0630 ORAL 11/19/18 06:30 12/16/18 06:29 Morphine Sulfate (Morphine Sulfate) 2 mg Q4H PRN IVP severe pain 7-10 11/18/18 11:00 11/22/18 10:59 Ondansetron HCl (Zofran) 4 mg Q4H PRN IVP Nausea & Vomiting 11/18/18 11:00 12/15/18 10:59 Prednisone (predniSONE) 15 mg DAILY ORAL 11/19/18 09:00 12/15/18 17:59 Sodium Chloride 1,000 ml @ 75 mls/hr [id number] IV 11/18/18 10:15 12/16/18 10:59 Venlafaxine HCl (Effexor-XR) 75 mg DAILY ORAL 11/19/18 09:00 12/15/18 08:59 Allergies: Coded Allergies: FLUTICASONE FUROATE (Verified Allergy, Severe, Anaphylaxis, 11/11/18) VILANTEROL (Verified Allergy, Severe, Anaphylaxis, 11/11/18) [id number] REDUCTASE INHIBITOR (Verified Allergy, Mild, Shortness of Breath, 01/16/16) SULFA (SULFONAMIDE ANTIBIOTICS) (Verified Allergy, Mild, Shortness of Breath, 01/16/16) SULFAMETHOXAZOLE (Verified Allergy, Mild, Rash, 01/16/16) TRIMETHOPRIM (Verified Allergy, Mild, Rash, 01/16/16) ROS Limited/Unobtainable: No Constitutional: Reports: no symptoms HEENT: Reports: no symptoms Cardiovascular: Reports: no symptoms Respiratory: Reports: no symptoms Gastrointestinal/Abdominal: Reports: no symptoms Genitourinary: Reports: no symptoms Neurologic/Psychiatric: Reports: no symptoms Subjective 68 YO F admitted with rash on right face. Now herpes zoster ophthalmicus and herpes zoster face. Cover for Int Joel-Dr Burger Objective Last Vital Signs Date Time Temp Pulse Resp B/P (MAP) Pulse Ox O2 Delivery O2 Flow Rate FiO2 11/18/18 16:00 97.3 86 18 144/72 (96) 93 11/18/18 15:40 Room Air 11/18/18 07:25 21 Laboratory Tests Test 11/18/18 06:20 White Blood Count 8.4 K/UL (4.8-10.8) Red Blood Count 4.27 M/UL (4.20-5.40) Hemoglobin 13.4 G/DL (12.0-16.0) Hematocrit 40.5 % (37.0-47.0) Mean Corpuscular Volume 95 FL (80-99) Mean Corpuscular Hemoglobin 31.4 PG (27.0-31.0) H Mean Corpuscular Hemoglobin Concent 33.1 G/DL (32.0-36.0) Red Cell Distribution Width 12.4 % (11.6-14.8) Platelet Count 304 K/UL (150-450) Mean Platelet Volume 5.5 FL (6.5-10.1) L Neutrophils (%) (Auto) 59.9 % (45.0-75.0) Lymphocytes (%) (Auto) 22.4 % (20.0-45.0) Monocytes (%) (Auto) 11.1 % (1.0-10.0) H Eosinophils (%) (Auto) 5.1 % (0.0-3.0) H Basophils (%) (Auto) 1.5 % (0.0-2.0) Erythrocyte Sedimentation Rate 25 MM/HR (0-30) Sodium Level 139 MMOL/L (136-145) Potassium Level 3.5 MMOL/L (3.5-5.1) Chloride Level 102 MMOL/L (98-107) Carbon Dioxide Level 26 MMOL/L (21-32) Anion Gap 11 mmol/L (5-15) Blood Urea Nitrogen 13 mg/dL (7-18) Creatinine 0.8 MG/DL (0.55-1.30) Estimat Glomerular Filtration Rate > 60 mL/min (>60) Glucose Level 99 MG/DL (74-106) Calcium Level 8.7 MG/DL (8.5-10.1) Phosphorus Level 4.6 MG/DL (2.5-4.9) Magnesium Level 2.1 MG/DL (1.8-2.4) Total Bilirubin 0.4 MG/DL (0.2-1.0) Aspartate Amino Transf (AST/SGOT) 18 U/L (15-37) Alanine Aminotransferase (ALT/SGPT) 23 U/L (12-78) Alkaline Phosphatase 59 U/L (46-116) C-Reactive Protein, Quantitative 1.9 mg/dL (0.00-0.90) H Total Protein 6.6 G/DL (6.4-8.2) Albumin 3.0 G/DL (3.4-5.0) L Globulin 3.6 g/dL Albumin/Globulin Ratio 0.8 (1.0-2.7) L Intake and Output 11/17/18 11/18/18 18:59 06:59 Intake Total 700 ml 2345 ml Output Total 1200 ml 700 ml Balance -500 ml 1645 ml Intake Oral 700 ml 700 ml IV Total 1245 ml Other 400 ml Output Urine Total 1200 ml 700 ml # Voids 3 Objective PHYSICAL EXAMINATION: GENERAL: This patient is a well-developed and well-nourished female, in no apparent distress. HEENT: Eyes, pupils are equal and responsive to light and accommodation. Extraocular movements are intact. NECK: Supple without lymphadenopathy. CHEST: Lungs are clear to auscultation bilaterally without wheezes or rales. CARDIOVASCULAR: Regular rhythm and rate. S1 and S2 are normal without murmurs, rubs, or gallops. ABDOMEN: Soft, nontender, and nondistended. Positive bowel sounds. No evidence of hepatosplenomegaly. Currently, no rebound or guarding noted. EXTREMITIES: Negative for clubbing, cyanosis, or edema. RECTAL/GENITAL: Refused. NEUROLOGIC: Cranial nerves II through XII are grossly intact without focal deficits. Motor strength is 5/5 bilaterally. Deep tendon reflexes are 2+ plantar. INTEGUMENT: There is a vesicular rash over the entire right forehead including the nose and right eye. Assessment/Plan Assessment/Plan ASSESSMENT: This is a 68-year-old female. 1. Ophthalmic Herpes zoster of the right eye. 2. Herpes zoster of the face. 3. Hypothyroidism. 4. Asthma. 5. Hypertension. 6. Chronic obstructive pulmonary disease. 7. Depression. 8. Hypercholesterolemia. TREATMENT: 1. Herpes zoster ophthalmicus of the right eye/herpes zoster of the face. An Infectious Disease consultation has been obtained with Dr. Hamlin. The patient has been started empirically on intravenous acyclovir. We will follow recommendations of Infectious Disease. An Ophthalmology consultation has been obtained. 2. Hypothyroidism. Continue Synthroid as above. 3. Hypertension. Continue amlodipine and losartan as above. 4. Asthma. Continue Advair as above. Continue albuterol metered-dose inhaler two puffs p.o. q.i.d. p.r.n. 5. Depression. Continue venlafaxine as above. 6. Hypercholesteremia. Continue fish oil as above. Moshe Marcano MD November 18, 2018 18:08
[2018-11-18 20:00] VITALS: BP 133/69
[2018-11-19] VITALS: BP 128/77
[2018-11-19] MEDS: Acyclovir 1,000 MG in D5W 275 ML IV SCH ×2 (00:45→08:29)
[2018-11-19 04:00] VITALS: BP 127/68
[2018-11-19] MEDS: Heparin 5000 units/ml inj SUBQ SCH ×2 (06:40→13:25)
[2018-11-19 08:00] VITALS: BP 125/86
[2018-11-19] MEDS: Erythromycin Opth Ointment 3.5gm RIGHT EYE SCH (08:31)
[2018-11-19] MEDS ORDERED: Irbesartan 150mg tablet ORAL SCH (09:00)
[2018-11-19] MEDS ORDERED: Venlafaxine XR 75mg cap ORAL SCH (09:00)
[2018-11-19] MEDS ORDERED: Aspirin Baby 81mg ORAL SCH (09:00)
[2018-11-19 12:00] VITALS: BP 139/86
--- NOTE | 2018-11-19 12:01 | Infectious Diseases Prog Note ---
Assessment/Plan Assessment/Plan ASSESSMENT: The patient is a 68-year-old female with, Right facial Herpes zoster ophthalmicus (no history of visual changes), crusting Afebrile. Mild leukocytosis, Sp Hypertension. Asthma. Hypothyroidism. PLAN: Continue the patient on intravenous acyclovir d# 5/10, upon DC will change to Valtrex to complete the course ( Rx in chart) Continue the patient on topical Erythromycin Recommend Ophthalmologic consultation. Monitor CBC. Monitor BMP. Contact isolation Subjective Allergies: Coded Allergies: FLUTICASONE FUROATE (Verified Allergy, Severe, Anaphylaxis, 11/11/18) VILANTEROL (Verified Allergy, Severe, Anaphylaxis, 11/11/18) [id number] REDUCTASE INHIBITOR (Verified Allergy, Mild, Shortness of Breath, 01/16/16) SULFA (SULFONAMIDE ANTIBIOTICS) (Verified Allergy, Mild, Shortness of Breath, 01/16/16) SULFAMETHOXAZOLE (Verified Allergy, Mild, Rash, 01/16/16) TRIMETHOPRIM (Verified Allergy, Mild, Rash, 01/16/16) Subjective Comfortable Afebrile Objective Vital Signs Last 24 Hour Vital Signs Date Time Temp Pulse Resp B/P (MAP) Pulse Ox O2 Delivery O2 Flow Rate FiO2 11/19/18 09:48 90 20 Room Air 21 11/19/18 09:00 Room Air 11/19/18 08:31 95 127/68 11/19/18 08:30 127/68 11/19/18 08:00 98.8 82 18 125/86 (99) 98 11/19/18 04:00 98.7 95 18 127/68 (87) 98 11/19/18 00:00 97.3 81 18 128/77 (94) 96 11/18/18 21:00 Room Air 11/18/18 20:54 83 20 Room Air 21 11/18/18 20:00 98.7 92 20 133/69 (90) 93 11/18/18 16:00 97.3 86 18 144/72 (96) 93 11/18/18 15:40 Room Air Height (Feet): 5 Height (Inches): 6.00 Weight (Pounds): 200 HEENT: anicteric Respiratory/Chest: no respiratory distress Cardiovascular: regular rhythm Abdomen: no organomegaly Current Medications Medications (Trade) Dose Ordered Sig/Shayan Route PRN Reason Start Time Stop Time Status Last Admin Dose Admin Acetaminophen (Tylenol) 650 mg Q4H PRN ORAL Mild Pain/Temp > 100.5 11/18/18 11:00 12/15/18 10:59 Acetaminophen/ Hydrocodone Bitart ([place] 5/325) 1 tab Q6H PRN ORAL moderate pain 4-6 11/18/18 10:45 11/22/18 07:44 Acyclovir 1000 mg/ Dextrose 275 ml @ 275 mls/hr Q8HR@0100,0900,1700 IV 11/18/18 17:00 12/15/18 08:59 11/19/18 08:29 Amlodipine Besylate (Norvasc) 5 mg DAILY ORAL 11/19/18 09:00 12/15/18 08:59 11/19/18 08:31 Aspirin (ASA) 81 mg DAILY ORAL 11/19/18 09:00 12/15/18 08:59 11/19/18 08:30 Erythromycin (Ilotycin) 1 applic BID RIGHT EYE 11/18/18 18:00 11/22/18 17:59 11/19/18 08:31 Gabapentin (Neurontin) 100 mg THREE TIMES A DAY ORAL 11/18/18 13:00 12/15/18 08:59 11/19/18 08:31 Heparin Sodium (Porcine) (Heparin 5000 units/ml) 5,000 units EVERY 8 HOURS SUBQ 11/18/18 14:00 12/15/18 13:59 11/19/18 06:40 Ipratropium [place] (Atrovent) 500 mcg Q6H PRN HHN Shortness of Breath 11/18/18 10:45 11/21/18 10:44 Irbesartan (Avapro) 300 mg DAILY ORAL 11/19/18 09:00 12/15/18 08:59 11/19/18 08:30 Levothyroxine Sodium (Synthroid) 100 mcg DAILY@0630 ORAL 11/19/18 06:30 12/16/18 06:29 11/19/18 06:39 Morphine Sulfate (Morphine Sulfate) 2 mg Q4H PRN IVP severe pain 7-10 11/18/18 11:00 11/22/18 10:59 Ondansetron HCl (Zofran) 4 mg Q4H PRN IVP Nausea & Vomiting 11/18/18 11:00 12/15/18 10:59 Prednisone (predniSONE) 15 mg DAILY ORAL 11/19/18 09:00 12/15/18 17:59 11/19/18 08:31 Sodium Chloride 1,000 ml @ 75 mls/hr [id number] IV 11/18/18 10:15 12/16/18 10:59 11/18/18 22:26 Venlafaxine HCl (Effexor-XR) 75 mg DAILY ORAL 11/19/18 09:00 12/15/18 08:59 11/19/18 08:31 August Hamlin MD November 19, 2018 12:01
[2018-11-19] MEDS ORDERED: VALTREX1000 MG PO (13:21)
--- NOTE | 2018-11-19 13:22 | Pulmonology Progress Note ---
Assessment/Plan Problems: (1) Shingles (2) History of hypertension (3) History of asthma (4) Hypothyroidism Assessment/Plan all reviewed getting better all reviewed on IV acyclovir monitor BP respiratory treatment check electrolytes dvt prophylaxis. dc home with oral abx, cleared by ID Subjective ROS Limited/Unobtainable: No Constitutional: Reports: no symptoms HEENT: Repors: no symptoms Allergies: Coded Allergies: FLUTICASONE FUROATE (Verified Allergy, Severe, Anaphylaxis, 11/11/18) VILANTEROL (Verified Allergy, Severe, Anaphylaxis, 11/11/18) [id number] REDUCTASE INHIBITOR (Verified Allergy, Mild, Shortness of Breath, 01/16/16) SULFA (SULFONAMIDE ANTIBIOTICS) (Verified Allergy, Mild, Shortness of Breath, 01/16/16) SULFAMETHOXAZOLE (Verified Allergy, Mild, Rash, 01/16/16) TRIMETHOPRIM (Verified Allergy, Mild, Rash, 01/16/16) Objective Last 24 Hour Vital Signs Date Time Temp Pulse Resp B/P (MAP) Pulse Ox O2 Delivery O2 Flow Rate FiO2 11/19/18 12:00 98.0 80 20 139/86 (103) 96 11/19/18 09:48 90 20 Room Air 21 11/19/18 09:00 Room Air 11/19/18 08:31 95 127/68 11/19/18 08:30 127/68 11/19/18 08:00 98.8 82 18 125/86 (99) 98 11/19/18 04:00 98.7 95 18 127/68 (87) 98 11/19/18 00:00 97.3 81 18 128/77 (94) 96 11/18/18 21:00 Room Air 11/18/18 20:54 83 20 Room Air 21 11/18/18 20:00 98.7 92 20 133/69 (90) 93 11/18/18 16:00 97.3 86 18 144/72 (96) 93 11/18/18 15:40 Room Air Intake and Output 11/18/18 11/19/18 19:00 07:00 Intake Total 1075 ml 875 ml Balance 1075 ml 875 ml IV Total 75 ml 875 ml Other 1000 ml # Voids 3 General Appearance: WD/WN HEENT: normocephalic, anicteric Respiratory/Chest: chest wall non-tender, lungs clear Cardiovascular: no JVD Abdomen: normal bowel sounds Genitourinary: normal external genitalia Extremities: no cyanosis Skin: no rash Current Medications Medications (Trade) Dose Ordered Sig/Shayan Route PRN Reason Start Time Stop Time Status Last Admin Dose Admin Acetaminophen (Tylenol) 650 mg Q4H PRN ORAL Mild Pain/Temp > 100.5 11/18/18 11:00 12/15/18 10:59 Acetaminophen/ Hydrocodone Bitart ([place] 5/325) 1 tab Q6H PRN ORAL moderate pain 4-6 11/18/18 10:45 11/22/18 07:44 Acyclovir 1000 mg/ Dextrose 275 ml @ 275 mls/hr Q8HR@0100,0900,1700 IV 11/18/18 17:00 12/15/18 08:59 11/19/18 08:29 Amlodipine Besylate (Norvasc) 5 mg DAILY ORAL 11/19/18 09:00 12/15/18 08:59 11/19/18 08:31 Aspirin (ASA) 81 mg DAILY ORAL 11/19/18 09:00 12/15/18 08:59 11/19/18 08:30 Erythromycin (Ilotycin) 1 applic BID RIGHT EYE 11/18/18 18:00 11/22/18 17:59 11/19/18 08:31 Gabapentin (Neurontin) 100 mg THREE TIMES A DAY ORAL 11/18/18 13:00 12/15/18 08:59 11/19/18 13:17 Heparin Sodium (Porcine) (Heparin 5000 units/ml) 5,000 units EVERY 8 HOURS SUBQ 11/18/18 14:00 12/15/18 13:59 11/19/18 06:40 Ipratropium [place] (Atrovent) 500 mcg Q6H PRN HHN Shortness of Breath 11/18/18 10:45 11/21/18 10:44 Irbesartan (Avapro) 300 mg DAILY ORAL 11/19/18 09:00 12/15/18 08:59 11/19/18 08:30 Levothyroxine Sodium (Synthroid) 100 mcg DAILY@0630 ORAL 11/19/18 06:30 12/16/18 06:29 11/19/18 06:39 Morphine Sulfate (Morphine Sulfate) 2 mg Q4H PRN IVP severe pain 7-10 11/18/18 11:00 11/22/18 10:59 Ondansetron HCl (Zofran) 4 mg Q4H PRN IVP Nausea & Vomiting 11/18/18 11:00 12/15/18 10:59 Prednisone (predniSONE) 15 mg DAILY ORAL 11/19/18 09:00 12/15/18 17:59 11/19/18 08:31 Sodium Chloride 1,000 ml @ 75 mls/hr [id number] IV 11/18/18 10:15 12/16/18 10:59 11/19/18 13:18 Venlafaxine HCl (Effexor-XR) 75 mg DAILY ORAL 11/19/18 09:00 12/15/18 08:59 11/19/18 08:31 Patricia Willis MD November 19, 2018 13:22
[2018-11-19] MEDS ORDERED: NEURONTIN300 MG ORAL (13:49)
[2018-11-19] MEDS ORDERED: ACETAMINOPHEN-1 EAC1 ORAL (13:50)
--- NOTE | 2018-11-19 14:37 | Internal Med Progress Note ---
Subjective Physician Name Lev Burger Attending Physician Lev Burger MD Current Medications Medications (Trade) Dose Ordered Sig/Shayan Route PRN Reason Start Time Stop Time Status Last Admin Dose Admin Acetaminophen (Tylenol) 650 mg Q4H PRN ORAL Mild Pain/Temp > 100.5 11/18/18 11:00 12/15/18 10:59 Acetaminophen/ Hydrocodone Bitart ([place] 5/325) 1 tab Q6H PRN ORAL moderate pain 4-6 11/18/18 10:45 11/22/18 07:44 Acyclovir 1000 mg/ Dextrose 275 ml @ 275 mls/hr Q8HR@0100,0900,1700 IV 11/18/18 17:00 12/15/18 08:59 11/19/18 08:29 Amlodipine Besylate (Norvasc) 5 mg DAILY ORAL 11/19/18 09:00 12/15/18 08:59 11/19/18 08:31 Aspirin (ASA) 81 mg DAILY ORAL 11/19/18 09:00 12/15/18 08:59 11/19/18 08:30 Erythromycin (Ilotycin) 1 applic BID RIGHT EYE 11/18/18 18:00 11/22/18 17:59 11/19/18 08:31 Gabapentin (Neurontin) 100 mg THREE TIMES A DAY ORAL 11/18/18 13:00 12/15/18 08:59 11/19/18 13:17 Heparin Sodium (Porcine) (Heparin 5000 units/ml) 5,000 units EVERY 8 HOURS SUBQ 11/18/18 14:00 12/15/18 13:59 11/19/18 06:40 Ipratropium [place] (Atrovent) 500 mcg Q6H PRN HHN Shortness of Breath 11/18/18 10:45 11/21/18 10:44 Irbesartan (Avapro) 300 mg DAILY ORAL 11/19/18 09:00 12/15/18 08:59 11/19/18 08:30 Levothyroxine Sodium (Synthroid) 100 mcg DAILY@0630 ORAL 11/19/18 06:30 12/16/18 06:29 11/19/18 06:39 Morphine Sulfate (Morphine Sulfate) 2 mg Q4H PRN IVP severe pain 7-10 11/18/18 11:00 11/22/18 10:59 Ondansetron HCl (Zofran) 4 mg Q4H PRN IVP Nausea & Vomiting 11/18/18 11:00 12/15/18 10:59 Prednisone (predniSONE) 15 mg DAILY ORAL 11/19/18 09:00 12/15/18 17:59 11/19/18 08:31 Sodium Chloride 1,000 ml @ 75 mls/hr [id number] IV 11/18/18 10:15 12/16/18 10:59 11/19/18 13:18 Venlafaxine HCl (Effexor-XR) 75 mg DAILY ORAL 11/19/18 09:00 12/15/18 08:59 11/19/18 08:31 Allergies: Coded Allergies: FLUTICASONE FUROATE (Verified Allergy, Severe, Anaphylaxis, 11/11/18) VILANTEROL (Verified Allergy, Severe, Anaphylaxis, 11/11/18) [id number] REDUCTASE INHIBITOR (Verified Allergy, Mild, Shortness of Breath, 01/16/16) SULFA (SULFONAMIDE ANTIBIOTICS) (Verified Allergy, Mild, Shortness of Breath, 01/16/16) SULFAMETHOXAZOLE (Verified Allergy, Mild, Rash, 01/16/16) TRIMETHOPRIM (Verified Allergy, Mild, Rash, 01/16/16) Subjective Awake, alert, responsive, no acute distress. Objective Last Vital Signs Date Time Temp Pulse Resp B/P (MAP) Pulse Ox O2 Delivery O2 Flow Rate FiO2 11/19/18 12:00 98.0 80 20 139/86 (103) 96 11/19/18 09:48 Room Air 21 Intake and Output 11/18/18 11/19/18 19:00 07:00 Intake Total 1075 ml 875 ml Balance 1075 ml 875 ml IV Total 75 ml 875 ml Other 1000 ml # Voids 3 Objective GENERAL: This patient is a well-developed and well-nourished female, in no apparent distress. HEENT: Eyes, pupils are equal and responsive to light and accommodation. Extraocular movements are intact. NECK: Supple without lymphadenopathy. CHEST: Lungs are clear to auscultation bilaterally without wheezes or rales. CARDIOVASCULAR: Regular rhythm and rate. S1 and S2 are normal without murmurs, ABDOMEN: Soft, nontender, and nondistended. Positive bowel sounds. Obesity. EXTREMITIES: Negative for clubbing, cyanosis, or edema. NEUROLOGIC: Cranial nerves II through XII are grossly intact without focal deficits. Motor strength is 5/5 bilaterally. Deep tendon reflexes are 2+ plantar. INTEGUMENT: Dry vesicular rash over the entire right forehead including the nose and right eye. Assessment/Plan Assessment/Plan ASSESSMENT: This is a 68-year-old female. 1. Ophthalmic Herpes zoster of the right eye. 2. Herpes zoster of the face. 3. Hypothyroidism. 4. Asthma. 5. Hypertension. 6. Chronic obstructive pulmonary disease. 7. Depression. 8. Hypercholesterolemia. TREATMENT: - Follow-up with infection disease recommendation: Continue the patient on intravenous acyclovir d# 5/10, upon DC will change to Valtrex to complete the course ( Rx in chart) - Continue the patient on topical Erythromycin - Discharge home today follow-up in my office within 1 week. Lev Burger MD November 19, 2018 14:37
[2018-11-19 16:00] VITALS: BP 159/82
--- NOTE | 2018-11-22 11:47 | Discharge Summary ---
Discharge Summary Discharge Summary _ DATE OF ADMISSION: 11/15/2018 DATE OF DISCHARGE: 11/19/2018 DISCHARGED BY: Dr. Burger REASON FOR ADMISSION: 68 years old female with past medical history of hypertension, COPD/asthma, hypercholesterolemia, hypothyroidism, depression, presented with a chief complaint of the rash on the right side of her face. Patient initially noted redness on the right side of her face and then started to experience swelling . The right side of the face and eye became painful. Patient was called paramedics. Patient initially was evaluated at [facility] emergency department and after diagnosing with herpes zoster and stabilization, she was transferred to [facility] due to insurance purposes. CONSULTANTS: pulmonary Dr. Willis ID specialist Dr. Hamlin [facility] COURSE: Patient admitted to medical surgical floor. Patient started empirically on intravenous acyclovir. Patient started on short course of oral prednisone. Mild leukocytosis resolved , patient remained afebrile. Per ID specialist upon discharge acyclovir was changed to Valtrex to complete the course at home. Infectious disease specialist also recommended continue topical erythromycin, initiated in the hospital , for crusted lesions. Ophthalmology evaluation as outpatient was recommended. Patient reported no visual changes. Patient was kept in contact isolation. Supportive care provided. Pain management was addressed as needed. DVT prophylaxis provided. Blood pressure was managed with current regimen of calcium channel cristina and angiotensin receptor cristina. Pulse oximetry was stable on room air. No evidence of asthma exacerbation. Levothyroxine was continued. Antidepressive /Effexor -resumed. Mood remained stable. Clinically stabilized and was ready for discharge home FINAL DIAGNOSES: Right facial herpes zoster ophthalmicus, crusting COPD/asthma Hypertension Hypercholesterolemia Hypothyroidism Depression DISCHARGE MEDICATIONS: See Medication Reconciliation list. DISCHARGE INSTRUCTIONS: Patient was discharged home . Follow up with primary care provider in one week. I have been assigned to dictate discharge summary for this account. I was not involved in the patient's management. Veena Woods NP November 22, 2018 11:47
== END 2018-11-19 17:00 | disposition home or self-care (01) | DRG 125 ==
LOC: 2E 03:18 → 4E 11-18 10:14
DX: B02.30 Zoster ocular disease, unspecified (principal); E03.9 Hypothyroidism, unspecified; I10 Essential (primary) hypertension; J44.9 Chronic obstructive pulmonary disease, unspecified; E78.00 Pure hypercholesterolemia, unspecified; Z88.2 Allergy status to sulfonamides; Z88.8 Allergy status to other drugs, medicaments and biological substances; F32.9 Major depressive disorder, single episode, unspecified
CPT/HCPCS: 36415; 80048; 80053; 83735; 84100; 85025; 85651; 86140; 94664